=== PATIENT | female | born 1970 | race Hispanic/Latino ===

== ENCOUNTER 2016-08-31 13:57 | Emergency (ER) | payer OTHER ==
[~2016-08-31] VITALS: Ht 157.5 cm; Wt 70.3 kg
[~2016-08-31 13:57] MED LIST: AMOXICILLIN500 M3 PO; AUGMENTIN 875-1 EACH PO; AUGMENTIN 875875 MG PO; BACTRIM 400-801 EACH PO; BENADRYL 50 MG50 MG PO; CIPRO 500MG TA500 MG PO; CLINDAMYCIN HC150 M1 PO; DEXTROAMP-AMPHE30 MG PO; FLEXERIL10 MG PO; GABAPENTIN300 M2; HYDROCORTI2.5 %/30 G TOP; HYDROXYZINE PAM50 M1 PO; KLONOPIN2 MG PO; MEDROL4 MG PO; MOTRIN 600 MG600 MG PO; PERCOCET 325 MG1 TA2 PO; PYRIDIUM100 MG PO; SKELAXIN800 MG PO; TORADOL10 MG PO; TRAMADOL HCL50 M1 PO; TRIAMCINOL0.1 %/453 TOP; VICODIN5-300 PO
[2016-08-31] MEDS ORDERED: TRIAMCINOLONE A15 G2 TOP (15:35)
--- NOTE | 2016-08-31 15:35 | ED SKIN/ALLERGY COMPLAINT ---
History of Present Illness General Chief Complaint: Skin Rash/ Abcess Stated Complaint: ITCHY HANDS, TICK BITE TO LT ARM Source: patient Exam Limitations: no limitations Vital Signs & Intake/Output Vital Signs & Intake/Output Vital Signs Date Time Temp Pulse Resp B/P B/P Pulse O2 O2 Flow FiO2 Mean Ox Delivery Rate 08/31 1558 97.5 78 18 115/70 98 Room Air Room Air 08/31 1405 97.5 77 18 114/72 99 Room Air Allergies Coded Allergies: NO KNOWN ALLERGIES (09/24/14) Reconcile Medications Amoxicillin 500 MG TABLET 1 TAB PO TID dental pain Dextroamphetamine/Amphetamine (Dextroamp-Amphetamin 30 MG Tab) 30 MG TABLET 1 TAB PO 4 TIMES/DAY ADD (Reported) Gabapentin (Unknown Strength) CAPSULE (Unknown Dose) UNKNOWN (Reported) Hydroxyzine Pamoate 50 MG CAPSULE 2 CAP PO QPM SLEEP (Reported) Tramadol HCl 50 MG TABLET 1-2 TAB PO Q6P PRN pain Triamcinolone Acetonide 0.5 % CREAM..G. 1 ARIAN TOP BID eczema apply to affected area(s) Triage Note: STATE SHE PULLED A TICK OFF HER LEFT UPPER ARM. DOESNT KNOW WHAT TO DO. ALSO C/O RED, ITCHY HANDS X 1 WEEK. Triage Nurses Notes Reviewed? yes Onset: Abrupt Duration: day(s):, constant, continues in ED Timing: recent history Severity: moderate, severe Location: hands No Modifying Factors: none : No Patient currently breastfeeds: No HPI: 45-year-old female comes into emergency room with rash on her bilateral hands that has been going on for the past week. Itching. Red. Denies any fever chills. Patient reports that she may have pulled a tick off of her in the day. It was crawling around on her arm. She does not think it was on their morning a day or 2. She was not 100% sure that it was a tick but thinks it was. Denies any rash. Small bite to her left upper arm. (LARRY CARTWRIGHT) Past History Travel History Traveled to [place] past 21 day No Medical History Any Pertinent Medical History? 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 No (LARRY CARTWRIGHT) Review of Systems Review of Systems Constitutional: Reports: no symptoms. EENTM: Reports: no symptoms. Respiratory: Reports: no symptoms. Cardiovascular: Reports: no symptoms. GI: Reports: no symptoms. Genitourinary: Reports: no symptoms. Musculoskeletal: Reports: no symptoms. Skin: Reports: see HPI. Neurological/Psychological: Reports: no symptoms. Hematologic/Endocrine: Reports: no symptoms. Immunologic/Allergic: Reports: no symptoms. All Other Systems: Reviewed and Negative (LARRY CARTWRIGHT) Physical Exam Physical Exam General Appearance: well developed/nourished Head: atraumatic Eyes: Bilateral: normal appearance. Ears, Nose, Throat: normal ENT inspection, hearing grossly normal Neck: normal inspection Respiratory: no respiratory distress Cardiovascular: regular rate/rhythm Back: normal inspection Extremities: no edema Neurologic/Psych: awake, alert, oriented x 3, normal mood/affect Skin: intact, rash Skin Problem Location: upper extremities Skin Problem Character: erythematous, lichenification, crusting, located in the folds of skin so fingers, small papules, Lymphatic: no anterior cervical toshia (LARRY CARTWRIGHT) Progress Differential Diagnosis: abscess/cellulitis, allergic reaction, contact dermatitis, lyme disease, meningitis/sepsis, piyriasis rosea, toxic shock syndrome, urticaria, eczema Plan of Care: Current Medications Sig/Ivan Start time Last Medication Dose Stop Time Status Admin Doxycycline Hyclate 200 MG ONCE ONE 08/31 1545 AC (Vibramycin) 08/31 1546 Departure Departure Disposition: HOME OR SELF CARE Condition: Stable Clinical Impression Primary Impression: Eczema Secondary Impressions: Insect bite Referrals: PATIENT HAS NO PRIMARY CARE DR (PCP/Family) Additional Instructions: Use triamcinolone cream as prescribed. Follow-up with your primary care Dr. provided for Lyme titer in 4-6 weeks. Return if any other concerns worsening symptoms. Please go over all results of today's visit with your primary care doctor. Contact your primary care doctor to let them know you were here in the emergency room. There may be nonspecific findings which may not be related to your visit today here in the emergency room but may require further evaluation and chronic monitoring by your primary care doctor. If you had a laceration today the chance of foreign body always remains. You should follow-up with your primary care doctor for recheck in 3-5 days for a wound check. If you had an x-ray done there is a chance that a fracture could have been missed on initial read and you should follow-up with your primary care doctor for repeat x-rays if symptoms persist. If your blood pressure was elevated here in the emergency room please have rechecked by her primary care doctor within the next 48 hours by your primary care doctor. If you were prescribed a narcotic here in the emergency room or any type of controlled substances you're not allowed to drive while taking this medication or operate any type of heavy machinery. Narcotics can make you feel lightheaded dizziness nausea and can cause constipation. You may need to fruit picker machine operator a stool softener. Thank you for choosing [facility] emergency room. Please return to the emergency room immediately if you have any other concerns worsening of symptoms. Departure Forms: Customer Survey General Discharge Information Prescriptions: Current Visit Scripts Triamcinolone Acetonide 1 ARIAN TOP BID #30 GM apply to affected area(s) Comments 08/31/2016 4:14:06 PM Patient clinically looks well. Rashes most consistent with eczema. Low suspicion for Lyme disease prophylactic dose of doxycycline 200 mg. Patient can follow-up with her primary care doctor to be tested for Lyme in 4 weeks. Too early to test. Clinically looks well otherwise. (LARRY CARTWRIGHT) PA/RIG BUILDER Co-Sign Statement Statement: ED Attending supervision documentation- [] I saw and evaluated the patient. I have also reviewed all the pertinent lab results and diagnostic results. I agree with the findings and the plan of care as documented in the PA's/RIG BUILDER's documentation. [X] I have reviewed the ED Record and agree with the PA's/RIG BUILDER's documentation. [] Additions or exceptions (if any) to the PAs/RIG BUILDER's note and plan are summarized below: [] (MAHAMED HIGGINS,OJ)
[2016-08-31 15:58] VITALS: BP 115/70
== END 2016-08-31 16:00 ==
LOC: ERH 13:57
DX: S40.862A Insect bite (nonvenomous) of left upper arm, initial encounter (principal); L30.9 Dermatitis, unspecified; W57.XXXA Bitten or stung by nonvenomous insect and other nonvenomous arthropods, initial encounter; Y92.9 Unspecified place or not applicable; Y93.9 Activity, unspecified

== ENCOUNTER 2016-09-03 10:42 | Emergency (ER) | payer OTHER ==
[~2016-09-03] VITALS: Ht 157.5 cm; Wt 83.9 kg
[~2016-09-03 10:42] MED LIST changes: +TRIAMCINOLONE A15 G2 TOP
--- NOTE | 2016-09-03 11:17 | ED CARDIAC/CP/PALPITATIONS ---
History of Present Illness General Chief Complaint: Chest Pain Stated Complaint: CHEST PAIN, LEFT ARM PAIN Source: patient, old records Exam Limitations: no limitations Vital Signs & Intake/Output Vital Signs & Intake/Output Vital Signs Date Time Temp Pulse Resp B/P B/P Pulse O2 O2 Flow FiO2 Mean Ox Delivery Rate 09/03 1338 97.5 103 16 143/79 99 Room Air 09/03 1155 96 Room Air 09/03 1110 98.6 97 15 112/82 100 Room Air Allergies Coded Allergies: NO KNOWN ALLERGIES (09/24/14) Reconcile Medications Clonazepam 1 MG TABLET 1 TAB PO TIDPRN ANXIETY (Reported) Dextroamphetamine/Amphetamine (Dextroamp-Amphetamin 30 MG Tab) 30 MG TABLET 1 TAB PO 4 TIMES/DAY ADD (Reported) Triage Note: PT TO ED FOR INTERMITTENT CP X 2 DAYS, UNABLE TO IDENTIFY IF ANYTHING MAKES CHEST PAIN BETTER. PT USING CELL PHONE THROUGHOUT EKG AND EATING GOLDFISH. Triage Nurses Notes Reviewed? yes Onset: Abrupt Duration: day(s): (3), intermittent, waxing and waning Timing: recent history Quality/Severity: mild, moderate, aching Location: central Radiation: no radiation Activities at Onset: none Nitro Today/Relief: no nitro taken today Aspirin Today: no aspirin today Associated Symptoms: DENIES HPI: 45-year-old female with history of asthma, ADD, anxiety presents to ER complaining of intermittent left-sided chest pain has been present for the past 3 days associated with left hip pain. She denies any shortness of breath the pain is reproducible in both regions with palpation. She denies cough hemoptysis recent immobility no pain with inspiration. Patient states that her leg gave out yesterday while walking her dog which causes the pain to her leg and left hip. She denies any knee foot or ankle pain numbness or tingling no arm or jaw or back pain. No history of similar symptoms in the past she is not taken anything for her symptoms and they resolved PRIOR TO ARRIVAL Past History Travel History Traveled to [place] past 21 day No Medical History Any Pertinent Medical History? 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 No Review of Systems Review of Systems Constitutional: Reports: see HPI. All Other Systems: Reviewed and Negative Comments Review of systems: See HPI, All other systems negative. Constitutional, no chills no fever, no malaise HEENT: no sore throat no congestion, no ear pain Cardiovascular: No chest pain , no palpitation , no orthopnea Skin: no rashes, no change in skin Respiratory: No dyspnea no cough no sputum GI: No nausea no vomiting, no diarrhea, : No dysuria No hematuria, no frequency, no discharge Muscle skeletal: No joint pain, no joint swelling, no back pain, no neck pain, Neurologic: no headache Psych: stress,. Heme/endocrine: No bruising no bleeding Immunology: No lymphadenopathy Physical Exam Physical Exam General Appearance: well developed/nourished, alert, awake Cardiovascular: regular rate/rhythm Comments: Well-developed well-nourished person in no acute distress HEENT: Normal EENT exam; PERRL, EOMI, HEAD is atraumatic. moist mucous membranes. Neck: Supple, normal range of motion Back: Nontender, no CVA tenderness. Full range of motion Cardiovascular: Regular rate and rhythms no murmurs rubs Respiratory: Chest nontender.There were no bony deformities, no asymmetry. No respiratory distress. Patient speaking in full complete sentences. Breath sounds clear to auscultation bilaterally: NO W/R/R Abdomen: Soft, nontender nondistended, no appreciable organomegaly. Normal bowel sounds. No rebound/guarding Extremity: No edema, full range of motion of extremities Neuro: Alert oriented x3, motor sensory normal, nofocal neurologic abnormalities. Skin: No appreciable rash on exposed skin, skin is warm and dry. Psych: Mood and affect is normal, memory and judgment is normal. Core Measures ACS in differential dx? Yes Severe Sepsis Present: No Septic Shock Present: No Progress Differential Diagnosis: AMI, musculoskeletal pain, myocarditis, pericarditis, pneumonia, pneumothorax, pulmonary embolism, unstable angina, ELECTROLYTEABNROMALITY Plan of Care: Orders Procedure Date/time Status TROPONIN LEVEL 09/03 1117 Complete COMPREHENSIVE METABOLIC PANEL 09/03 1117 Complete CBC WITHOUT DIFFERENTIAL 09/03 1117 Complete EKG 09/03 1044 Active Laboratory Tests 09/03/16 1150: Anion Gap 11, Estimated GFR > 60, BUN/Creatinine Ratio 20.0, Glucose 90, Calcium 9.1, Total Bilirubin 0.4, AST 28, ALT 31, Alkaline Phosphatase 48, Troponin I < 0.01, Total Protein 7.2, Albumin 4.3, Globulin 2.9, Albumin/Globulin Ratio 1.5, CBC w Diff NO MAN DIFF REQ, RBC 4.62, MCV 79.1 L, MCH 25.6 L, RDW 15.5 H, MPV 10.7 H, Gran % 59.4, Lymphocytes % 32.5, Monocytes % 6.1, Eosinophils % 1.5, Basophils % 0.5, Absolute Granulocytes 5.6, Absolute Lymphocytes 3.0, Absolute Monocytes 0.6, Absolute Eosinophils 0.1, Absolute Basophils 0, PUBS MCHC 32.3 L Labs ordered patient denies any symptoms at this time case discussed with Dr. Stahl On repeat evaluation patient remains pain-free ambulatory around the emergency room with steady gait. Pain is reproducible with palpation I discussed with the patient at length all of their results. I had an extensive conversation regarding need for close follow up with their primary care physician this week as well as return precautions. I answered all of their questions, they feel comfortable with the plan and follow-up care. (EARL LOPEZ,SUMMER) Diagnostic Imaging: Viewed by Me: Radiology Read. Discussed w/RAD: Radiology Read. Radiology Impression: PATIENT: LUCIANO VERDE PRESENT AGE : 45 PATIENT ACCOUNT NO: [id number] : 70 LOCATION: [facility] ORDERING PHYSICIAN: SUMMER LOPEZ SERVICE DATE: 09/03/16 EXAM TYPE: RAD - XRY- AP PELVIS; XRY-CHEST XRAY, PA AND LATERAL EXAMINATION: XR PELVIS CLINICAL INFORMATION: Chest pain. COMPARISON: None TECHNIQUE: AP view of the pelvis. FINDINGS: Both lungs are well-expanded and clear of acute process. There is mild dextroscoliosis of dorsal spine. No lytic or sclerotic process seen. IMPRESSION: Mild dextroscoliosis. Otherwise no acute cardiopulmonary process seen. DICTATED BY: JACOB HIGGINS,ERIK DATE/TIME DICTATED:09/03/161233 CHIEF WHARFINGER:SOHEILA DATE/TIME TRANSCRIBED:09/03/161233 CONFIDENTIAL, DO NOT COPY WITHOUT APPROPRIATE AUTHORIZATION. <Electronically signed in Other Vendor System> SIGNED BY: JACOB HIGGINS,ERIK 09/03/16 1405 Initial ED EKG: normal intervals, normal p-waves, normal QRS complex, normal sinus rhythm (80) Departure Departure Time of Disposition: 1333 Disposition: HOME OR SELF CARE Condition: Stable Clinical Impression Primary Impression: Atypical chest pain Referrals: OSMAN MANCUSO DO PATIENT HAS NO PRIMARY CARE DR (PCP/Family) Additional Instructions: Follow-up with primary care physician Dr. MANCUSO on Tuesday rest Tylenol Motrin as needed for pain return with any concerns Departure Forms: Customer Survey General Discharge Information Critical Care Note Critical Care Note Critical Care Time: non-applicable
[2016-09-03 12:04] LABS: ABSOLUTE BASOPHIL COUNT 0 /CUMM (0.0-0.2); ABSOLUTE EOSINOPHIL COUNT 0.1 /CUMM (0.0-0.7); ABSOLUTE GRANULOCYTE CT 5.6 /CUMM (1.4-6.5); ABSOLUTE MONOCYTE COUNT 0.6 /CUMM (0.10-0.60); BASOPHIL % 0.5 % (0.0-2.0); EOSINOPHIL % 1.5 % (0-5); GRANULOCYTE % 59.4 % (42.2-75.2); HEMATOCRIT 36.6 % (37-47); MEAN CORPUSCULAR HGB 25.6 PG (27.0-31.0); MEAN CORPUSCULAR HGB CONC 32.3 G/DL (33.0-37.0); MEAN CORPUSCULAR VOLUME 79.1 FL (81.0-99.0); MEAN PLATELET VOLUME 10.7 FL (7.4-10.4); PLATELET COUNT 252 /CUMM (130-400); RBC DISTRIBUTION WIDTH 15.5 % (11.5-14.5); RED BLOOD CELL CT 4.62 /CUMM (4.20-5.40); WHITE BLOOD CELL COUNT 9.4 /CUMM (4.8-10.8)
[2016-09-03 13:38] VITALS: BP 143/79
[2016-09-03] MEDS ORDERED: IBUPROFEN600 M1 PO (13:44)
[2016-09-03] MEDS ORDERED: CLONAZEPAM1 M2 PO (13:48)
--- NOTE | 2016-09-03 14:05 | RADIOLOGY REPORT ---
EXAMINATION: XR PELVIS CLINICAL INFORMATION: Chest pain. COMPARISON: None TECHNIQUE: AP view of the pelvis. FINDINGS: Both lungs are well-expanded and clear of acute process. There is mild dextroscoliosis of dorsal spine. No lytic or sclerotic process seen. IMPRESSION: Mild dextroscoliosis. Otherwise no acute cardiopulmonary process seen.
== END 2016-09-03 13:49 ==
LOC: ERH 10:42
PROVIDERS: Physician Assistant Medical
DX: R07.89 Other chest pain (principal); M25.552 Pain in left hip
CPT/HCPCS: 72170; 93005; 93010

== ENCOUNTER 2016-10-20 01:21 | Emergency (ER) | payer OTHER ==
[~2016-10-20 01:21] MED LIST changes: +CLONAZEPAM1 M2 PO; +IBUPROFEN600 M1 PO
== END 2016-10-20 04:00 | disposition admitted as inpatient to this hospital (09) ==
LOC: ERH 01:21
DX: H57.10 Ocular pain, unspecified eye (principal)

== ENCOUNTER 2017-08-03 21:22 | Emergency (ER) | payer OTHER ==
[~2017-08-03] VITALS: Ht 157.5 cm; Wt 68.0 kg
[2017-08-03 21:28] VITALS: BP 145/95
[2017-08-03] MEDS ORDERED: PREDNISONE50 M1 PO (22:27)
[2017-08-03] MEDS ORDERED: TRIAMCINOLONE A15 G1 TOP (22:27)
[2017-08-03] MEDS ORDERED: KEFLEX500 M1 PO (22:27)
--- NOTE | 2017-08-03 22:28 | ED GENERAL ADULT ---
History of Present Illness General Chief Complaint: Animal/Insect Bite Stated Complaint: INSECT BITE,?SPIDER BITE Source: patient Exam Limitations: no limitations Vital Signs & Intake/Output Vital Signs & Intake/Output Vital Signs Date Time Temp Pulse Resp B/P B/P Pulse O2 O2 Flow FiO2 Mean Ox Delivery Rate 08/04 2127 97.7 89 20 145/95 97 Room Air ED Intake and Output 08/04 0000 08/03 1200 Intake Total 0 Output Total Balance 0 Intake, Oral 0 Patient 150 lb Weight Allergies Coded Allergies: tramadol (Severe, SHAKES 08/03/17) Reconcile Medications Cephalexin (Keflex) 500 MG CAPSULE 1 CAP PO TID CELLULITIS Clonazepam 1 MG TABLET 1 TAB PO TIDPRN ANXIETY (Reported) Dextroamphetamine/Amphetamine (Dextroamp-Amphetamin 30 MG Tab) 30 MG TABLET 1 TAB PO 4 TIMES/DAY ADD (Reported) Metoclopramide HCl (Reglan) 10 MG TABLET 1 TAB PO 4 TIMES/DAY PRN NAUSEA/ HEADACHE 30 minutes before meals and bedtime Prednisone 50 MG TABLET 1 TAB PO DAILY ALLERGIC REACTION Triamcinolone Acetonide 0.1 % CREAM..G. 1 ARIAN TOP BID PRN RASH Triage Note: PT TO TRIAGE S/P ?SPIDER BITE LAST NIGHT ON L UPPER ARM. REDNESS NOTED ON ARM FROM MID UPPER ARM TO L ELBOW. PT AFEBRILE. PT UNABLE TO FOCUS ON ONE TOPIC IN TRIAGE. Triage Nurses Notes Reviewed? yes Onset: Abrupt Duration: day(s): (3), constant, continues in ED, getting worse Timing: single episode today Injury Environment: home Severity: mild, moderate Severity Numbers: 9 No Modifying Factors: none LMP (ages 10-50): unknown : No Patient currently breastfeeds: No HPI: 46 red female past medical history of anxiety, asthma, MIGRANES,Iosteoarthritis presents for evaluation of a rash. Patient states she first noticed an area of redness on her left upper arm a few days ago and has been getting worse. States that the redness is spreading up and down her arm. The area is painful and slightly swollen. It is also itchy. She denies any new exposures. No focal fluctuant areas or discharge no fever. She also reports that she has had worsening of her eczema. She states that she has thickened and erythematous very itchy skin on her bilateral anterior wrists. No discharge. No swelling of her lips on her throat no chest pain shortness of breath or fever. She is not a diabetic.she does report some associated nausea (Mitchell Jovel) Past History Travel History Traveled to [place] past 21 day No Medical History Any Pertinent Medical History? 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 No (Mitchell Jovel) Review of Systems Review of Systems Constitutional: Reports: no symptoms. EENTM: Reports: no symptoms. Respiratory: Reports: no symptoms. Cardiovascular: Reports: no symptoms. GI: Reports: no symptoms. Genitourinary: Reports: no symptoms. Musculoskeletal: Reports: no symptoms. Skin: Reports: see HPI, erythema, rash. Neurological/Psychological: Reports: no symptoms. Hematologic/Endocrine: Reports: no symptoms. Immunologic/Allergic: Reports: no symptoms. All Other Systems: Reviewed and Negative (Mitchell Jovel) Physical Exam Physical Exam General Appearance: well developed/nourished, no apparent distress, alert, awake Head: atraumatic, normal appearance Eyes: Bilateral: normal appearance, PERRL, EOMI. Ears, Nose, Throat: hearing grossly normal Neck: normal inspection, supple, full range of motion Respiratory: normal breath sounds, chest non-tender, no respiratory distress, lungs clear Cardiovascular: regular rate/rhythm, normal peripheral pulses Peripheral Pulses: 2+ radial (R), 2+ radial (L) Gastrointestinal: soft, non-tender Back: normal inspection, normal range of motion, no vertebral tenderness Extremities: normal range of motion, THERE IS ERYTHEMATOUS LICHENIFIED SCALING RAISED LESIONS ON THE BILATERAL ANTERIOR WRISTS. nO BURROWS NO DISCHARGE NO PAIN TO PALPATION. fULL RANGE OF MOTION OF BILATERAL WRISTS INTACT. tHERE IS ALSO AN AREA OF ERYTHEMA THAT EXTENDS FROM THE LEFT UPPER ARM INTO THE LEFT SHOULDER. tHIS AREA IS TENDER TO PALPATION. nO FOCAL FLUCTUANT AREAS OR DISCHARGE NO INDURATION NO LYMPHATIC STREAKING. tHE AREA IS WARM TO TOUCH. fULL RANGE OF MOTION OF THE BILATERAL UPPER EXTREMITIES IS INTACT. nEUROVASCULAR SUPPLY ATTACK NO LYMPHADENOPATHY IN THE LEFT AXILLA Neurologic/Psych: no motor/sensory deficits, awake, alert, oriented x 3, normal gait, normal mood/affect Skin: intact, normal color, warm/dry Lymphatic: no anterior cervical toshia Core Measures ACS in differential dx? No CVA/TIA Diagnosis: No Sepsis Present: No Sepsis Focused Exam Completed? No (Mitchell Jovel) Progress Differential Diagnoses I considered the following diagnoses in my evaluation of the patient: [ Cellulitis, contact dermatitis, abscess, scabies, eczema, shingles] Plan of Care: Current Medications Sig/Ivan Start time Last Medication Dose Stop Time Status Admin Metoclopramide HCl 10 MG ONCE ONE 08/03 2229 UNVr (Reglan) 08/03 2230 Morphine Sulfate 4 MG ONCE ONE 08/03 2229 UNVr (Morphine) 08/03 2230 Patient seen and evaluated. She is a itchy painful rash on her left upper extremity. She also has evidence of eczema on her bilateral wrists. States that the rash on the wrist has been present for many weeks while the rash in the left upper extremity is new. Patient is medicated with IM morphine. On reevaluation reports improved pain. Suspect cellulitis versus allergic etiology. There are no vesicles or burrows. Patient be treated with cephalexin and prednisone. Topical Kenalog for eczema. Advised her to keep her skin clean dry. Follow-up with a primary care doctor. Discussed return precautions in detail she should have a wound check in a few days. Patient agrees the plan Initial ED EKG: none (Mitchell Jovel) Departure Departure Disposition: HOME OR SELF CARE Condition: Stable Clinical Impression Primary Impression: Rash Referrals: Rachelle HIGGINS,Javier Mejía MD,Wil Almanza MD,Obinna Casillas Patient Has No Primary Care Dr (PCP/Family) Additional Instructions: Take antibiotics and steroids as directed for the full course. Reglan for nausea/headache. Tylenol or ibuprofen for pain. Apply KENALOG cream twice daily as directed over rash. Keep skin clean and dry. Use a anti-dANDRUFF. You need to follow-up with a primary care doctor see attached list. Departure Forms: Customer Survey General Discharge Information Prescriptions: Current Visit Scripts Triamcinolone Acetonide 1 ARIAN TOP BID PRN RASH #1 TUBE Prednisone 1 TAB PO DAILY #5 TAB Cephalexin (Keflex) 1 CAP PO TID #30 CAP Metoclopramide HCl (Reglan) 1 TAB PO 4 TIMES/DAY PRN NAUSEA/HEADACHE #30 TAB 30 minutes before meals and bedtime (Mitchell Jovel) PA/TRANSACTIONAL ATTORNEY Co-Sign Statement Statement: ED Attending supervision documentation- I saw and evaluated the patient. I have also reviewed all the pertinent lab results and diagnostic results. I agree with the findings and the plan of care as documented in the PA's/TRANSACTIONAL ATTORNEY's documentation. x I have reviewed the ED Record and agree with the PA's/TRANSACTIONAL ATTORNEY's documentation. [] Additions or exceptions (if any) to the PAs/TRANSACTIONAL ATTORNEY's note and plan are summarized below: [] (Kvng HIGGINS,Hari) Critical Care Note Critical Care Note Critical Care Time: non-applicable (Mitchell Jovel)
[2017-08-03] MEDS ORDERED: REGLAN10 M1 PO (22:57)
== END 2017-08-03 23:12 ==
LOC: ERH 21:22
DX: R21 Rash and other nonspecific skin eruption (principal)

== ENCOUNTER 2017-08-10 12:50 | Emergency (ER) | payer OTHER ==
[~2017-08-10] VITALS: Ht 157.5 cm; Wt 65.8 kg
[~2017-08-10 12:50] MED LIST changes: +KEFLEX500 M1 PO; +PREDNISONE50 M1 PO; +REGLAN10 M1 PO; +TRIAMCINOLONE A15 G1 TOP
[2017-08-10 13:04] VITALS: BP 133/87
[2017-08-10] MEDS ORDERED: METHADONE10 MG/1 M2 PO (13:10)
--- NOTE | 2017-08-10 13:12 | ED SKIN/ALLERGY COMPLAINT ---
See Addendum History of Present Illness General Chief Complaint: Skin Rash/ Abcess Stated Complaint: ?ALLERGIC REACTION/SKIN RASH Source: patient Exam Limitations: no limitations Vital Signs & Intake/Output Vital Signs & Intake/Output Vital Signs Date Time Temp Pulse Resp B/P B/P Pulse O2 O2 Flow FiO2 Mean Ox Delivery Rate 08/10 1304 98.2 105 18 133/87 100 Room Air Allergies Coded Allergies: tramadol (Severe, SHAKES 08/03/17) Reconcile Medications Famotidine (Pepcid) 20 MG TABLET 1 TAB PO DAILY PRN ALLERGIC REACTION Hydrocortisone 2.5 % CREAM..G. 1 ARIAN TOP TID PRN ALLERGIC REACTION Methadone HCl 10 MG/ML ORAL.CONC 73 MG PO Q48 MAINTENCE (Reported) Triage Note: 46 Y/O FEMALE C/O SCALY RED RASH TO ALL BODY (ARMS, LEGS, TORSO) X 2 DAYS. PT STATES SOME AREAS ARE DRAINING. +ITCHING. DENIES KNOWN ALLERGIES OR SOURCES. Triage Nurses Notes Reviewed? yes Onset: Gradual Duration: constant Timing: recent history Severity: severe Severity Numbers: 7 HPI: Patient is a 46-year-old female who presents emergency room stating that 2 days ago patient changed her soap where she developed a gradual onset of bilateral hand and wrist in which she is complaining of red irritating scaling rash is significantly causing her to itch her hands and wrists. Patient denies any fever chills tongue swelling lip swelling difficulty breathing difficulty swallowing Patient has been taking Benadryl with moderate relief of symptoms. Denies any new medications (Jeanmarie Gorman) Past History Travel History Traveled to [place] past 21 day No Medical History Any Pertinent Medical History? 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 No (Jeanmarie Gorman) Review of Systems Review of Systems Constitutional: Reports: no symptoms. EENTM: Reports: no symptoms. Respiratory: Reports: no symptoms. Cardiovascular: Reports: no symptoms. GI: Reports: no symptoms. Genitourinary: Reports: no symptoms. Musculoskeletal: Reports: no symptoms. Skin: Reports: see HPI, rash. Neurological/Psychological: Reports: no symptoms. Hematologic/Endocrine: Reports: no symptoms. Immunologic/Allergic: Reports: no symptoms. All Other Systems: Reviewed and Negative (Jeanmarie Gorman) Physical Exam Physical Exam General Appearance: no apparent distress, alert, comfortable Head: atraumatic Eyes: Bilateral: normal appearance, PERRL. Ears, Nose, Throat: normal pharynx, normal ENT inspection Neck: normal inspection Respiratory: normal breath sounds, chest non-tender, no respiratory distress Extremities: normal capillary refill, normal range of motion, no edema Neurologic/Psych: no motor/sensory deficits, awake, alert Diagram Chest, Abdomen, Back: 1) Noted dried erythematous scaling rash ventral and posterior full active range of motion with wrist flexion extension 2) Noted dried erythematous scaling rash ventral and posterior full active range of motion with wrist flexion extension (Jeanmarie Gorman) Progress Differential Diagnosis: abscess/cellulitis, allergic reaction, anaphylaxis, angioedema, contact dermatitis, drug reaction, urticaria Plan of Care: Current Medications Sig/Ivan Start time Last Medication Dose Stop Time Status Admin Famotidine 20 MG ONCE ONE 08/10 1330 AC (Pepcid) 08/10 1331 No concerns of anaphylaxis or angioedema no stridor on exam clear lungs auscultation Due to history of present illness and exam findings are's concerns of contact dermatitis due to patient's news soap exposure (Jeanmarie Gorman) Departure Departure Disposition: HOME OR SELF CARE Condition: Stable Clinical Impression Primary Impression: Allergic reaction Secondary Impressions: Rash Referrals: Patient Has No Primary Care Dr (PCP/Family) Additional Instructions: As discussed please begin your previously used Dove soap and discontinue the [employer] brand soap as this may be due to causes her symptoms. Begin the prescription of hydrocortisone and apply as directed creamed and begin the prescription of Pepcid tomorrow as you have received this medication the emergency room today. If symptoms worsen return to emergency room. Continue uqoe-orm-ajyrmcy Benadryl. Follow-up with YOUR doctor on Tuesday if no better Departure Forms: Customer Survey General Discharge Information Prescriptions: Current Visit Scripts Hydrocortisone 1 ARIAN TOP TID PRN ALLERGIC REACTION #1 TUBE Famotidine (Pepcid) 1 TAB PO DAILY PRN ALLERGIC REACTION #7 TAB (Jeanmarie Gorman) PA/BDC MANAGER Co-Sign Statement Statement: ED Attending supervision documentation- [] I saw and evaluated the patient. I have also reviewed all the pertinent lab results and diagnostic results. I agree with the findings and the plan of care as documented in the PA's/BDC MANAGER's documentation. [X] I have reviewed the ED Record and agree with the PA's/BDC MANAGER's documentation. [] Additions or exceptions (if any) to the PAs/BDC MANAGER's note and plan are summarized below: [] (Deshaun Baker DO
[2017-08-10] MEDS ORDERED: HYDROCORTISONE30 GM TOP (13:29)
[2017-08-10] MEDS ORDERED: PEPCID20 M1 PO (13:29)
== END 2017-08-10 13:54 ==
LOC: ERH 12:50
DX: L23.89 Allergic contact dermatitis due to other agents (principal)

== ENCOUNTER 2017-10-08 16:43 | Inpatient (IN) | payer OTHER ==
[~2017-10-08] VITALS: Ht 160 cm; Wt 65.8 kg
[~2017-10-08 16:43] MED LIST changes: +HYDROCORTISONE30 GM TOP; +HYDROXYZINE HCL50 M1 PO; +METHADONE10 MG/1 M2 PO; +PEPCID20 M1 PO
[2017-10-08] MEDS ORDERED: ALPRAZOLAM2 M2 PO (17:18)
[2017-10-08] MEDS ORDERED: DEXTROAMP-AMPHE20 MG PO (17:20)
[2017-10-08] MEDS ORDERED: PROAIR HFA8.5 GM INH (17:20)
[2017-10-08] MEDS ORDERED: HYDROXYZINE HCL50 M2 (17:21)
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
[2017-10-08 17:41] LABS: ABSOLUTE BASOPHIL COUNT 0.1 /CUMM (0.0-0.2); ABSOLUTE EOSINOPHIL COUNT 0.2 /CUMM (0.0-0.7); ABSOLUTE GRANULOCYTE CT 5.1 /CUMM (1.4-6.5); ABSOLUTE LYMPH COUNT 3.5 /CUMM (1.2-3.4); ABSOLUTE MONOCYTE COUNT 0.5 /CUMM (0.10-0.60); BASOPHIL % 0.8 % (0.0-2.0); EOSINOPHIL % 1.9 % (0-5); GRANULOCYTE % 54.9 % (42.2-75.2); HEMATOCRIT 37.9 % (37-47); MEAN CORPUSCULAR HGB 25.5 PG (27.0-31.0); MEAN CORPUSCULAR HGB CONC 32.2 G/DL (33.0-37.0); MEAN CORPUSCULAR VOLUME 79.1 FL (81.0-99.0); MEAN PLATELET VOLUME 11.8 FL (7.4-10.4); RBC DISTRIBUTION WIDTH 15.4 % (11.5-14.5); RED BLOOD CELL CT 4.79 /CUMM (4.20-5.40); WHITE BLOOD CELL COUNT 9.4 /CUMM (4.8-10.8)
[2017-10-08 17:53] LABS: PLATELET COUNT 237 /CUMM (130-400)
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
--- NOTE | 2017-10-10 17:11 | ED PSYCHIATRIST/APRN CONSULT ---
Psychiatrist/PATROL OFFICER ED Consult Assessment and Plan: PROGRESS NOTE: SUBJECTIVE: Patient reports her life is "a mess." Patient knows that her brother is concerned about her because she is "not doing well." Patient says she needs to sleep with the lights on because she is worried about intruders. Patient states she "needs my Xanax so that I don't worry and I need my Adderall also but I stay motivated." Patient feels that methadone is currently wearing off but no overt signs of withdrawal at this point. Patient states she is also beginning to feel Xanax were off and states that she wants to sleep but is afraid that she is going to wake up anxious and needs her Xanax before she can go to sleep. Patient denies SI/HI/AVH/SIB however reported SI 2 days ago and that "nothing has changed." Patient reports poor sleep, anhedonia however likes going to movies. Patient reports poor energy, concentration, low appetite with weight loss. Patient reports nightmares, flashbacks of past trauma, intrusive thoughts, but denies reexperiencing or dissociation. Patient denies Ssx cisco or psychosis, however reports a "special connection with her dog Blue, we can like in each other's eyes and know exactly what the other one is thinking." Pt dneied TP/TI/IOR. Patient states that she is "not doing well" at home and has had her water disconnected, is about to have her electricity disconnected and only is able to pay her rent with SSDI. Patient states she does not have enough food and is unable to care for her dogs but is afraid to be put to sleep. Patient endorses very poor memory and has been writing extensive lists while in Crisis bed, "so that I don't forget anything." Patient is in agreement with inpatient admission for maintenance of safety, psychiatric stabilization and medication adjustments. Psychoeducation regarding Adderall and Xanax provided. OBJECTIVE: Patient interviewed with nephrology social worker video editing intern present. Patient has been isolative in room, currently eating lunch, nodding. Patient has been requesting Xanax and Adderall. Patient appears sedated on interview. Current Medications Sig/Ivan Start time Last Medication Dose Route Stop Time Status Admin Haloperidol 5 MG Q6-PRN PRN 10/09 1200 UNVr PO Hydrocortisone 1 ARIAN BID 10/08 1745 AC 10/10 EXT 0844 Lorazepam 0 .STK-MED ONE 10/11 815 DC PO Lorazepam 2 MG QPM 10/09 2099 UNVr 10/09 PO 2017 Lorazepam 0 .STK-MED ONE 10/09 2012 DC PO Lorazepam 1 MG QAM 10/09 899 UNVr 10/10 PO 0844 Methadone HCl 60 MG DAILY 10/10 899 UNVr 10/10 PO 0844 Methadone HCl 0 .STK-MED ONE 10/11 815 DC PO Nicotine 0 .STK-MED ONE 10/11 815 DC TOP Nicotine 14 MG DAILY 10/08 1830 UNVr 10/10 TOP 0844 Laboratory Tests 10/08/17 1823: Urine Opiates Screen < 100, Methadone Screen > 735 H, Barbiturate Screen < 60, Ur Phencyclidine Scrn < 6.00, Amphetamines Screen > 1450 H, U Benzodiazepines Scrn > 800 H, Urine Cocaine Screen < 50, Urine Cannabis Screen < 5.00 10/08/17 1731: Anion Gap 13, Estimated GFR > 60, BUN/Creatinine Ratio 20.0, Glucose 115 H, Calcium 9.4, Magnesium 2.0, Total Bilirubin 0.2, AST 21, ALT 24, Alkaline Phosphatase 56, Total Protein 7.1, Albumin 4.1, Globulin 3.0, Albumin/Globulin Ratio 1.4, CBC w Diff NO MAN DIFF REQ, RBC 4.79, MCV 79.1 L, MCH 25.5 L, MCHC 32.2 L, RDW 15.4 H, MPV 11.8 H, Gran % 54.9, Lymphocytes % 37.2, Monocytes % 5.2, Eosinophils % 1.9, Basophils % 0.8, Absolute Granulocytes 5.1, Absolute Lymphocytes 3.5 H, Absolute Monocytes 0.5, Absolute Eosinophils 0.2, Absolute Basophils 0.1, Serum Alcohol < 10.0 Vital Signs Date Time Temp Pulse Resp B/P B/P Pulse O2 O2 Flow FiO2 Mean Ox Delivery Rate 10/10 1648 98.2 90 18 147/87 100 Room Air 10/10 1434 97.6 97 18 132/90 97 Room Air 10/10 1116 97.6 91 18 146/84 99 Room Air 10/10 0849 98.2 93 18 136/85 99 Room Air 10/10 0626 98.6 88 18 129/69 95 Room Air 10/09 2213 98.1 78 18 131/86 99 Room Air 10/09 1743 97.9 90 17 151/92 99 Room Air MSE: GENERAL: Oriented to self and place, minimal eye contact, nodding, disheveled, no acute distress. SPEECH: Soft and low, garbled at times, needed to repeat MOTOR: Mild tremor, no asterixis or other abnormal movements MOOD: "Not good" AFFECT: Low, sedated, mood congruent, constricted range, non-labile, poorly related THOUGHT PROCESS: Circumstantial, drifting off THOUGHT CONTENT: No SI/HI/AVH/SIB, but reports she might feel SI again if she returned home, no apparent grandiosity, delusions, obsessions, ruminations, but with mild paranoia COGNITION: Clearly impaired attention, memory or concentration JUDGMENT: Poor INSIGHT: Poor ASSESSMENT: 47-year-old with opiate use disorder on methadone maintenance therapy, anxiety, depression, likely sedative use disorder (Xanax) and stimulant use disorder (Adderall), presenting with brother after SI statements and poor ADLs at home decompensating over the last several months unable to maintain utilities or care of her animals. Strong family history of schizophrenia. Patient with moderate TBI with memory loss and impulsivity, complicated by misuse and withdrawal of both stimumants and sedatives. At this time, pt is at risk of harm to self d/t grave disability and is in agreement with inpatient admission for psychiatric stabilization, maintenance of safety, medication management and aftercare planning. PLAN: -Bed search , place on PEC , maintain safety, q15m in checks -continue meds at this time, monitor for withdrawal -Consider switching from Xanax to longer acting Klonopin -NRT as needed -Regular diet -collateral
--- NOTE | 2017-10-11 10:52 | ED PSYCHIATRIST/APRN CONSULT ---
Psychiatrist/NEUROLOGY SPECIALIST ED Consult Assessment and Plan: PROGRESS NOTE SUBJECTIVE: Patient eating lunch, reports adequate appetite. Patient appears less sedated than yesterday. Patient had methadone this morning. Patient reports that her sleep was fair. Patient currently denies SI/HI/AVH/SIB but still feels extremely "worried." Patient quite ruminative about Adderall and Xanax, feeling she needs both in order to function. Patient counseled to speak with inpatient doctor tomorrow about medication plan, patient in agreement. Denies current withdrawal. Patient denies pain or other physical complaints. Patient is concerned about her Nghia and Ani bracelets at her home and is very concerned that her landlord may steal her belongings, patient has asked her brother to watch over her apartment. OBJECTIVE: Per staff, pt slept overnight, occasionally asking for her medications. No overt withdrawal or any other acute events. Pt remained in behavioral control, adherent with staff instructions and medications. VSS. Patient has very mild hand tremor, no other abnormal movements. Current Medications Sig/Ivan Start time Last Medication Dose Route Stop Time Status Admin Haloperidol 5 MG Q6-PRN PRN 10/09 1200 UNVr PO Hydrocortisone 1 ARIAN BID 10/08 1745 AC 10/11 EXT 0826 Ibuprofen 0 .STK-MED ONE 10/10 2357 DC PO Ibuprofen 600 MG 4 TIMES/DAY PRN 10/10 2345 UNVr 10/10 PO 2359 Lorazepam 0 .STK-MED ONE 10/12 0718 DC PO Lorazepam 0 .STK-MED ONE 10/10 2320 DC PO Lorazepam 2 MG QPM 10/09 2100 UNVr 10/10 PO 2332 Lorazepam 1 MG QAM 10/09 09 UNVr 10/11 PO 0826 Methadone HCl 0 .STK-MED ONE 10/11 0818 DC PO Methadone HCl 60 MG DAILY 10/10 899 UNVr 10/11 PO 0826 Nicotine 0 .STK-MED ONE 10/11 0819 DC TOP Nicotine 14 MG DAILY 10/08 1830 UNVr 10/11 TOP 0826 Vital Signs Date Time Temp Pulse Resp B/P B/P Pulse O2 O2 Flow FiO2 Mean Ox Delivery Rate 10/11 821 97.9 83 18 127/80 98 Room Air 10/11 0656 98.1 74 18 130/83 99 Room Air 10/10 2330 97.8 92 18 138/82 99 Room Air 10/10 1648 98.2 90 18 147/87 100 Room Air 10/10 1434 97.6 97 18 132/90 97 Room Air 10/10 1116 97.6 91 18 146/84 99 Room Air MSE: GENERAL: Oriented to self and place, appeared a bit brighter than yesterday , fair eye contact, disheveled, no acute distress, eating lunch. SPEECH: Soft and low, halting MOTOR: Mild tremor, no asterixis or other abnormal movements MOOD: "Lousy" AFFECT: Low, mood congruent, constricted range, non-labile, poorly related but improved from yesterday THOUGHT PROCESS: Perseverative on medications THOUGHT CONTENT: No SI/HI/AVH/SIB, but does not feel safe at home (SI might return), no apparent grandiosity, delusions, but with mild paranoia COGNITION: impaired attention, memory or concentration JUDGMENT: Poor-fair INSIGHT: Poor ASSESSMENT: 47-year-old with opiate use disorder on methadone maintenance therapy, anxiety, depression, likely sedative use disorder (Xanax) and stimulant use disorder (Adderall), with TBI hx in 1998, presenting with brother after SI statements and poor ADLs at home decompensating over the last several months unable to maintain utilities or care of her animals. Strong family history of schizophrenia. Patient with moderate TBI with memory loss and impulsivity, complicated by misuse and withdrawal of both stimumants and sedatives. At this time, pt is at risk of harm to self d/t grave disability and is in agreement with inpatient admission for psychiatric stabilization, maintenance of safety, medication management and aftercare planning. Pt appears less sedated today (not nodding) and in agreement with plan. PLAN: -Admit to [facility] on P[facility], in no bed then continue bed search , maintain safety, q15m in checks -continue meds at this time, monitor for withdrawal -Consider switching from Xanax to longer acting Klonopin -adderall was held in ED -NRT as needed -Regular diet -collateral
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
[2017-10-11 18:18] VITALS: BP 129/88
[2017-10-11 20:21] VITALS: BP 125/88
[2017-10-11] MEDS ORDERED: IBUPROFEN800 M1 (23:14)
[2017-10-11] MEDS ORDERED: PROCTOSOL-HC28.35 GM (23:15)
[2017-10-12 08:06] VITALS: BP 110/76
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
--- NOTE | 2017-10-12 12:07 | SOCIAL WORKER PROG NOTE PSYCH ---
Social Work Progress Note Progress Note Pt very upset over leaving a bag of clothes in her brothers car, she believes this was done intentionally. Pt too upset to speak about anything else at this time.
[2017-10-12 12:24] VITALS: BP 133/73
--- NOTE | 2017-10-12 13:04 | CPS PROVIDER INIT ASMT PSYCH ---
Psychiatric Admission Cutter Hot Knife's Note Reviewed: Yes Patient Seen and Examined: Yes Identifying Information: 46-year-old Chief Complaint: was brought into the emergency department by her brother and her [id number] who reported that the patient has been acting erratic and childlike Reaction to Hospitalization: The patient was admitted on a PEC History of Present Illness Onset of Illness: According to the evaluation by the production solderer Siri Siegel LCSW on 2017: "brother reported that she has been needing a lot of help with basic things including paying her rent and taking care of her dogs. The patient had severe traumatic brain injury in 1998. The patient also has had a history of addictions and has been lately on methadone plus a high dose of Xanax (6 mg per day) and high dose of Adderall (60 mg twice daily). According to the information gathered by the production solderer from the patient's brother the patient has been acting "childlike" and has --allegedly--made statements such as "I am tired of living" and "I want to kill myself", the patient also received an eviction notice by the landlord because of her behaviors at the apartment including allowing that her 2 pit bull dogs to urinate on the floor and not cleaning it up, has been accidentally locking herself out of her apartment 5 times recently and asking to be let in, left the toilet clogged and it flooded the bathroom, has not paid her paid her rent, as has been seen as having a change in her mental state and her demeanor by her family." Circumstances Leading to Admission: Erratic behavior Problem(s) Justifying Need for Admission: Erratic behavior Past Psychiatric History Past Diagnosis(es)- if any: Severe traumatic brain injury in 1998, 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 Opioid use disorder on methadone maintenance. 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 Opioid use disorder on methadone maintenance. Sedative hypnotic, and anxiolytic use disorder, severe (prescribe Xanax up to 6 mg a day since at least July 2017) History of Suicide Attempts or Gestures Reportedly the patient had a suicide attempt a week prior to her presentation to our emergency room Substance Abuse History: The patient is on methadone maintenance and was on a high dose of Xanax in the high dose of stimulant Allergies: Coded Allergies: prednisone (Severe, HIVES 09/09/17) tramadol (Severe, SHAKES 08/03/17) fluoxetine (From PROZAC) (SI 10/08/17) Home Med List: Alprazolam 2 MG TABLET 1 TAB PO BID ANXIETY #90 (Reported) Entered as Reported by Saundra Gay on 10/08/17 1718 Dextroamphetamine/Amphetamine (Dextroamp-Amphetamin 20 MG Tab) 20 MG TABLET 1 TAB PO TID ADHD #80 (Reported) Entered as Reported by Saundra Gay on 10/08/17 1720 Methadone HCl 10 MG/ML ORAL.CONC 76 MG PO DAILY MAINTENCE (Reported) Entered as Reported by Santhosh Gutierrez on 08/10/17 1310 Scheduled PRN Medications Albuterol Sulfate (Proair Hfa) 90 MCG HFA.AER.AD 2 PUF INH AD PRN ASTHMA #9 ( Reported) Entered as Reported by Saundra Gay on 10/08/17 1720 Miscellaneous Medications Hydroxyzine HCl (hydrOXYzine HCl) (Unknown Strength) TABLET (Unknown Dose) UNKNOWN #30 (Reported) Entered as Reported by Saundra Gay on 10/08/17 1721 - Include any medical condition(s) that may - impact the patient's recovery/remission Past History Medical History Neurological: NONE EENT: NONE Cardiovascular: HEART MURMUR Respiratory: asthma Gastrointestinal: NONE Hepatic: NONE Renal: NONE Musculoskeletal: ARTHRITIS Psychiatric: anxiety, ADD PANIC ATTACK Endocrine: NONE Blood Disorders: NONE Cancer(s): NONE LABEL CODER/Reproductive: NONE Isolation History: Standard Tetanus Vaccine: 04/23/15 Surgical History Surgical History: appendectomy Psychiatric Family/Social Hx Family History Psychiatric Illness: Reportedly the father may have had depression or anxiety since he was an alcoholic. Substance Use: Father was an alcoholic according to the patient Suicides: She denied completed suicide among blood relations Social History Living Situation: The patient was living in her own apartment but she might be at risk of infection Significant Relationships (family/friends): Brother and [id number] Education: Unknown please refer to the biopsychosocial assessment Vocation/Occupation: Unemployed please refer to the biopsychosocial assessment Legal: Patient denied Healthly Behaviors Screening Tobacco Screening Tobacco Use from ED Docu: Current Daily Use Daily Tobacco Use Amount/Type: => 5 Cigarettes daily - If tobacco counseling indicated - the following topics are required. - #1 Recognizing dangerous situations. - #2 Coping Skills. - #3 Basic information about quitting. Status of Tobacco Cessation Counseling: #1, #2 AND #3 Completed Cessation Med Status Nicotine Patch Ordered Alcohol Screening - ETOH screen POS if BAL >=80 or Audit-C>= M4/F3 Audit-C Score from Diag Assess: 0 Blood Alcohol Level: Lab Serum Alcohol < 10.0 MG/DL 10/08/17 1731 Alcohol Use Screening Results: Neg per Audit C &/or BAL - If ETOH counseling indicated - the following topics are required. - #1 Express concern about the patient's - drinking at unhealthy levels, include informing - of national norms for moderate drinking: - men <= 14 drinks/week, max 4 drinks/occasion - women <= 7 drinks/week, max 3 drinks/occasion - #2 Providing feedback, including linking alcohol to - negative physical effects (liver injury, hypertension) - negative emotional effects (relationship problems and - depression) - negative occupational consequences (reduced work - performance) - #3 Advising the patient to abstain from alcohol or - to drink below national norms for moderate drinking - (as listed above). Status of ETOH Use Counseling: N/A B/C NO ETOH Use Metabolic Screening - Screen if on a Neuroleptic Medication - Metabolic screening should include: - Blood Pressure, BMI, Glucose or Hgb A1c, & a - Lipid profile from within the past 365 days. Metabolic Screening Not Applicable, patient not on a neuroleptic. Exam and Plan Mental Status Examination Ambulation Status: Sedated but steady on her feet Appearance: Unremarkable appearance Attitude towards examiner: Cooperative Psychomotor activity: Normal psychomotor activity Behavior: Patient seems to be sedated Quality of speech: Slightly still slurred Affect: Constricted affect Mood: Reported that she is depressed and anxious Suicidal Ideation: Denied thinking about suicide today Homicidal Ideation: Denied thinking about violence or homicide Hallucinations: She denied hallucinations Paranoid/Delusional Material: She denied feeling paranoid , there were no delusions Difficulties with thought organization: The patient was coherent Insight: Poor Judgment: Poor Orientation: Oriented to place and person Cognition: Seems to have difficulties with attention concentration and information processing could be because of oversedation but she also has history of severe TBI Memory Function: Seems to have some difficulties with short-term memory but she is oversedated Estimate of intellectual functioning: Average Assets/Strengths Patient Identified Assets/Strengths: Patient has a supportive family Impression/Plan Impression and Plan: 47-year-old single with a history of severe TBI, on methadone maintenance , was on high dose of Xanax in high-dose of stimulant presented because of erratic behavior that seemed like delirium due to multiple substances - Include all active medical diagnosis that require tx DSM 5 Diagnosis(es): 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 Factors: Patient will be discharge if she continues to deny thoughts of suicide and once she exhibits better cognition and information processing and less disorganization
[2017-10-12 16:15] VITALS: BP 123/73
[2017-10-12 19:57] VITALS: BP 115/66
--- NOTE | 2017-10-13 07:23 | CP SOUTH PROGRESS NOTE PSYCH ---
Psych (Inpt) Progress Note Progress Note Laboratory Tests Urine Color (YEL,AMB,STR) PINK H Urine Clarity (CLEAR) HAZY H Urine pH (5.0 - 8.0) 7.0 Ur Specific [place] (1.001 - 1.035) 1.020 Urine Protein (NEG,<30 MG/DL) 100 H Urine Ketones (NEG) NEG Urine Nitrite (NEG) NEG Urine Bilirubin (NEG) NEG Urine Urobilinogen (0.1 - 1.0 EU/dl) 0.2 Ur Leukocyte Esterase (NEG) TRACE H Ur Microscopic SEDIMENT EXAMINED Urine RBC (0 - 5 /HPF) 25-50 H Urine WBC (0 - 2 /HPF) 3-5 H Ur Epithelial Cells (NONE,FEW) MANY H Urine Bacteria (NEG/NONE) MANY H Urine Mucus (FEW,NONE) FEW Urine Hemoglobin (NEG) LARGE H Urine Glucose (N MG/DL) NEG Vital Signs Date Time Temp Pulse B/P B/P O2 10/13 1210 84 110/75 10/13 0746 98.7 96 123/77 10/12 1957 99.5 99 115/66 10/12 1615 88 123/73 10/12 1224 99 133/73 Mental Status Examination alert, Cooperative, Normal psychomotor activity, constricted affect, depressed and anxious, Denied thinking about suicide today, Denied thinking about violence or homicide, She denied hallucinations, denied feeling paranoid , there were no delusions, Difficulties with thought organization, The patient was coherent, Oriented to place and person, Seems to have difficulties with attention concentration and information processing , Seems to have some difficulties with short-term memory but she is oversedated Assessment: Lilliana Quesada is a 47-year-old single with a history of severe TBI, on methadone maintenance, was on high dose of Xanax in high-dose of stimulant presented because of erratic behavior that seemed like delirium due to multiple substances Diagnoses): 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 Opioid dependence on maintenance treatment and Sedative hypnotic anxiolytic use disorder Stimulant use disorder Treatment Plan: Reduce methadone by 5 mg daily Change Klonopin to 1 mg during the day and 2 mg at bedtime start Gabapentin 600 mg four times daily , was on high dose of Xanax in high-dose of stimulant presented because of erratic behavior that seemed like delirium due to multiple substances Diagnosis(es): 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
[2017-10-13 07:46] VITALS: BP 123/77
[2017-10-13 12:10] VITALS: BP 110/75
--- NOTE | 2017-10-13 14:18 | SOCIAL WORKER PROG NOTE PSYCH ---
Social Work Progress Note Progress Note Pt has been attending groups, and med focused at this time. "I need ativan, I need water". Pt wanted to stay in group she was coloring and had takena a shower. Pt irritable and upset about dog and her brother.
[2017-10-13 16:08] VITALS: BP 101/63
[2017-10-13 19:52] VITALS: BP 128/75
--- NOTE | 2017-10-14 07:43 | CP SOUTH PROGRESS NOTE PSYCH ---
Psych (Inpt) Progress Note Progress Note Treatment team (JOSE RAUL, RN, Group/Activities Therapist, and Psychiatrist) discussed the pt.'s progress, inpatient treatment plan, and aftercare/discharge plans. Vital Signs Date Time Temp Pulse B/P O2 10/14 0810 97.1 90 108/79 10/13 1952 99.0 87 128/75 10/13 1608 84 101/63 Mental Status & Behavior: Pt. was alert, irritable/loud this morning, and marginally cooperative Normal psychomotor activity, irritable affect, mood remains "depressed and anxious" Pt. denied thinking about suicide today, denied thinking of violence or homicide , and denied hallucinations. Pt. 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
[2017-10-14 08:10] VITALS: BP 108/79
--- NOTE | 2017-10-14 08:27 | SOCIAL WORKER PROG NOTE PSYCH ---
Social Work Progress Note Progress Note Met with Lilliana today. She seemed a bit sedated. She was in group and appears to be visible in the milleu. She denied SI/HI, no AH/VH. She rated depression 8/ 10(worst) and anxiety 9/10. He can come in 10/17/17 at 1pm for a family meeting. She was upset about her (2) dogs, and has been trying to reach her brother, Kamari to see how they are doing. Lilliana knows she is being evicted doesn't think the process has started. She is concerned about her income SSDI "Only $750 per month" She stated "Klonopin make me sleep." She thinks she will be tapered completely off Methadone by discharge and does not want to stay on Methadone or return to [facility] In [place]. She wants to work with [facility]. Housing is an issue. She signed an CHRIS for her brother, Kamari Meadows. She agreed to a family meeting -Mon. 1pm with MEDARDO BarbaSunil and Dr. Mendez. TC - Kamari Quesada - Brother He stated with xanex, Klonopin and Methadone she had an episode and acting like a child. She is being evicted, things are bad at her apartment. He stated if she goes home, she is going to get killed by those dogs. They both fought. One dog is at [facility], and the other one is in her house. The [facility] will return him "Blue" to her. He fears something bad is going to happen to her or someone else. Kamari wants a letter that states she isn't mentally capable to care for a dog, she can't take care of herself. He stated "I have been dealing with hell." He stated he is hoping Care can help her (supervised housing or respite). He stated there is no utilites so she cannot return to her apartment. One of the dogs too a guys eye out. It's a dangerous situation. Her landlords don't want them on the premisis. He stated her mental status is so bed - she lost her income, utilities are being shut off. He states she cannot be alone - she needs someone to handle her income and monitor her medications. She cannot live alone. He stated she isn't conserved, he stated he was waiting for her kids to step-up but they don't. At baseline she sleeps in, and is not on point with anything, locks herself out of her apartment. She asks neighbor to brake a window. He stated she can't care for herself. He stated she has not been well for the past 5yrs. Discussed conservatorship, he is willing to go to [facility] to begin filing process and obtain more information.
[2017-10-14 12:07] VITALS: BP 125/73
[2017-10-14 16:11] VITALS: BP 124/67
--- NOTE | 2017-10-14 17:26 | SOCIAL WORKER PROG NOTE PSYCH ---
Social Work Progress Note Progress Note Concurrent review complete through the online [facility] portal and is listed as "pended." Pended Authorization # [id number] Client Authorization # [id number] Type of Request CONCURRENT
[2017-10-14 20:30] VITALS: BP 133/92
[2017-10-15 08:05] VITALS: BP 106/66
--- NOTE | 2017-10-15 10:33 | CP SOUTH PROGRESS NOTE PSYCH ---
Psych (Inpt) Progress Note Progress Note Include the following elements, when applicable: Involvement in the active treatment of the patient with behavioral observations of the patient and the patient's response to the treatment. Review of the ongoing treatment process in the context of the treatment plan. Indication of how multi-disciplinary staff members are carrying out the treatment plan. Plans for future interventions and recommendations for revision of the treatment plan. Liaison with other physicians/providers. Progress Note: Pt notes she slept well overnight. She then spoke at length about her "loves" listing ?five of her "lost loves." She noted that she slept better because of the aroumatherapy that was offerened. She became increasingly agitated during the interview. Denies SI or HI. Current Medications Sig/Ivan Start time Last Medication Dose Route Stop Time Status Admin Benztropine Mesylate 1 MG Q6P PRN 10/14 1445 AC PO Clonazepam 2 MG AT BEDTIME 10/13 2100 AC 10/14 PO 10/20 2058 2153 Gabapentin 600 MG FOUR TIMES A DAY 10/13 1400 AC 10/15 PO 0914 Haloperidol 5 MG Q6P PRN 10/14 1445 AC PO Haloperidol 5 MG Q6P PRN 10/14 1445 AC IM Haloperidol 5 MG Q6P PRN 10/09 1200 DC 10/12 PO 2021 Hydrocortisone 1 ARIAN BID 10/08 1745 AC 10/15 EXT 0915 Hydroxyzine HCl 50 MG Q8P PRN 10/15 0037 AC 10/15 PO 0037 Ibuprofen 600 MG Q4 HRS NEEDED PRN 10/13 1300 AC PO Lorazepam 2 MG Q6P PRN 10/14 1445 AC PO Lorazepam 2 MG Q6P PRN 10/14 1445 AC IM Methadone HCl 45 MG 00 10/16 0800 AC PO Methadone HCl 50 MG 0800 10/15 0800 DC 10/15 PO 10/15 0801 0749 Nicotine 14 MG DAILY 10/08 1830 AC 10/15 TOP 0914 Polyethylene Glycol 17 GM DAILY 10/12 1450 AC PO Senna/Docusate Sodium 1 TAB BID PRN 10/12 1500 AC PO Vital Signs Date Time Temp Pulse Resp B/P B/P Pulse O2 O2 Flow FiO2 Mean Ox Delivery Rate 10/15 08 98.1 88 106/66 10/14 2030 98.8 93 133/92 10/14 1611 92 124/67 10/14 1207 88 125/73 Appearance: older than stated age Speech : increased rate, rhythm, volume and nl prosody Behavior: cooperative but guarded Motor: + psychomotor agitation Mood : "alright!!" Affect : labile, anxious, irritable, inappropriate, constricted Thought process: tangential at best Thought content : ++ delusions or paranoia, denied SI or HI Perceptions: denied AVHs Insight: poor Judgment: poor A/P: Pt with Major NCD with behavioral disturbance 2/2 TBI with continued psychotic and mood sx. As working diagnosis documented prior seems to be underlying delirum, would treat as will presist longer without treatment. - Start 0.25mg risperidone BID, given pt has hx of oversedation - Otherwise, continue current medication regimen
[2017-10-15 15:57] VITALS: BP 136/87
[2017-10-15 19:57] VITALS: BP 131/86
[2017-10-16 09:15] VITALS: BP 116/67
--- NOTE | 2017-10-16 10:45 | CP SOUTH PROGRESS NOTE PSYCH ---
Psych (Inpt) Progress Note Progress Note Include the following elements, when applicable: Involvement in the active treatment of the patient with behavioral observations of the patient and the patient's response to the treatment. Review of the ongoing treatment process in the context of the treatment plan. Indication of how multi-disciplinary staff members are carrying out the treatment plan. Plans for future interventions and recommendations for revision of the treatment plan. Liaison with other physicians/providers. Progress Note: Pt notes that she has hemmorroids that she is struggling with today. Also noted increasing anxiety and requested higher dosing and more freqent dosing of klonopin. Pt very intrusive. Denies SI or HI. Current Medications Sig/Ivan Start time Last Medication Dose Route Stop Time Status Admin Benztropine Mesylate 1 MG Q6P PRN 10/14 1445 AC PO Calcium Carbonate 500 MG DAILY PRN 10/16 1030 AC PO Clonazepam 2 MG AT BEDTIME 10/13 2100 AC 10/15 PO 10/205 Gabapentin 600 MG FOUR TIMES A DAY 10/13 1400 AC 10/16 PO 0929 Haloperidol 5 MG Q6P PRN 10/14 1445 AC PO Haloperidol 5 MG Q6P PRN 10/14 1445 AC IM Hydrocortisone 1 ARIAN BID 10/08 1745 AC 10/16 EXT 0928 Hydroxyzine HCl 50 MG Q8P PRN 10/15 0037 AC 10/15 PO 1615 Ibuprofen 600 MG Q4 HRS NEEDED PRN 10/13 1300 AC 10/16 PO 1013 Lorazepam 2 MG .STK-MED ONE 10/15 1148 DC PO 10/15 1149 Lorazepam 2 MG Q6P PRN 10/14 1445 AC 10/15 PO 1149 Lorazepam 2 MG Q6P PRN 10/14 1445 AC IM Methadone HCl 40 MG 00 10/17 0800 AC PO 10/17 0801 Methadone HCl 45 MG 00 10/16 0800 DC 10/16 PO 10/16 0801 0927 Nicotine 2 MG Q2P PRN 10/15 1630 AC PO Nicotine 14 MG DAILY 10/08 1830 AC 10/16 TOP 0928 Polyethylene Glycol 17 GM DAILY 10/12 1450 AC PO Risperidone 0.25 MG BID 10/15 2100 AC 10/16 PO 0929 Senna/Docusate Sodium 1 TAB BID PRN 10/12 1500 AC PO Simethicone 80 MG Q4P PRN 10/15 1400 AC 10/16 PO 0927 Witch Liz 1 JAR Q8P PRN 10/16 1030 AC TOP Vital Signs Date Time Temp Pulse Resp B/P B/P Pulse O2 O2 Flow FiO2 Mean Ox Delivery Rate 10/16 0815 98.3 94 116/67 10/15 1956 99.2 98 131/86 10/15 1557 92 136/87 Appearance: older than stated age Speech : increased rate, rhythm, volume and nl prosody Behavior: cooperative but guarded Motor: + psychomotor agitation Mood : "my anxiety is so bad" Affect : labile, not anxious, extremely irritable, inappropriate, constricted Thought process: tangential at best Thought content : ++ delusions or paranoia, denied SI or HI Perceptions: denied AVHs Insight: poor Judgment: poor A/P: Pt with Major NCD with behavioral disturbance 2/2 TBI with continued psychotic and mood sx. As working diagnosis documented prior seems to be underlying delirum, would treat as will presist longer without treatment. - Continue 0.25mg risperidone BID, given pt has hx of oversedation - Otherwise, continue current medication regimen
[2017-10-16 12:15] VITALS: BP 129/79
[2017-10-16 15:57] VITALS: BP 135/61
[2017-10-16 18:55] VITALS: BP 122/72
[2017-10-16 20:04] VITALS: BP 105/64
[2017-10-17 07:52] VITALS: BP 105/67
--- NOTE | 2017-10-17 07:52 | CP SOUTH PROGRESS NOTE PSYCH ---
Psych (Inpt) Progress Note Progress Note I reviewed Dr. Renteria's notes for Tue and October 15 and 2017 Treatment team (JOSE RAUL, RN, Group/Activities Therapist, and Psychiatrist) discussed the pt.'s progress, inpatient treatment plan, and aftercare/discharge plans. Vital Signs: Date Time Temp Pulse B/P 10/17 0752 98.1 89 105/67 10/17 2003 98.6 96 105/64 Family meeting with patient's brother and Barbara Carreon LCSW Mental Status & Behavior: Although Dr. Renteria's note from yesterday indicated the presence of paranoid delusions, I was unable to elicit specific examples today. patient was loud and verbally abusive/rude during a family meeting Pt. was alert and oriented. She was demanding, irritable, rude, uncooperative. She reported that her anxiety is bad and that she is not on the right dose of Klonopin (she thinks she needs a higher dose). Pt. denied thinking about suicide today, denied thinking of violence or homicide, and denied hallucinations. Pt. was coherent for the most part with some tangents and circumstantial and perseverative speech, some difficulties with attention concentration and information processing Assessment: Lilliana Quesada is a 47-year-old Single who was admitted against her will on (on a PEC). Lilliana has history of severe TBI, on methadone maintenance, was on high dose of Xanax in high-dose of stimulant presented because of erratic behavior that seemed like delirium due to multiple substances (2 mg Xanax TID, Adderall 60 mg BID, Methadone, etc.) Since her admission to [facility], Lilliana has shown improvement in her alertness and ability to process information but remains irritable, angry, verbally abusive and dysregulated ? paranoia (as per Dr. Renteria's observations) Diagnoses (Last Update: 10/17/2017): Major Neurocognitive Disorder due to TBI Opioid Use Disorder, severe, on maintenance treatment and Sedative, Hypnotic, or Anxiolytic Use Disorder Stimulant Use disorder Treatment Plan Update: Continue Klonopin 1 mg during the day and 2 mg at bedtime Change /reduce gabapentin to 600 mg three times daily Continue Methadone 40 mg daily
--- NOTE | 2017-10-17 11:52 | SOCIAL WORKER PROG NOTE PSYCH ---
See Addendum Social Work Progress Note Progress Note Alma Garcia completed online auth it is pended as of today 10/17/17. [id number] auth #
[2017-10-17 12:27] VITALS: BP 151/66
--- NOTE | 2017-10-17 13:48 | SOCIAL WORKER PROG NOTE PSYCH ---
Social Work Progress Note Progress Note Pt had a family meeting with her Brother Jose Alberto, pt needs a referral to [facility] case management I left a voicemail with Miroslava and her brother has been in contact as well. Pt is unrealistic unable to process and could not continue to stay in our meeting she continued to perseverate over the dogs she has taken of. Her brother is a good resource and is aware she is being evicted and will need a conservator and long term care phlebotomist care.
[2017-10-17 15:57] VITALS: BP 102/72
[2017-10-17 20:15] VITALS: BP 119/76
--- NOTE | 2017-10-18 08:33 | CP SOUTH PROGRESS NOTE PSYCH ---
Psych (Inpt) Progress Note Progress Note Treatment team (JOSE RAUL, RN, Group/Activities Therapist, and Psychiatrist) discussed the pt.'s progress, inpatient treatment plan, and aftercare/discharge plans. Vital Signs: Date Time Temp Pulse B/P 10/18 0923 97.5 96 115/53 10/17 2014 98.9 98 119/76 Mental Status: loud and rude alert and oriented, demanding, irritable, marginally cooperative. She reported that her anxiety is high. Med-focused She denied thinking about suicide, denied thinking of violence or homicide, and denied hallucinations. Pt. was coherent for the most part with some tangents and circumstantial and perseverative speech, some difficulties with attention concentration and information processing Assessment: Lilliana Quesada is a 47-year-old Single who was admitted against her will on (on a PEC). Lilliana has history of severe TBI, on methadone maintenance, was on high dose of Xanax in high-dose of stimulant presented because of erratic behavior that seemed like delirium due to multiple substances (2 mg Xanax TID, Adderall 60 mg BID, Methadone, etc.). Since her admission to [facility], Lilliana has shown improvement in her alertness and ability to process information but remains irritable, angry, verbally abusive and dysregulated. I did not observe any paranoid or other delusions yesterday or today. 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
[2017-10-18 09:23] VITALS: BP 115/53
[2017-10-18 12:26] VITALS: BP 113/52
--- NOTE | 2017-10-18 15:16 | SOCIAL WORKER PROG NOTE PSYCH ---
Social Work Progress Note Progress Note LUCIANO VERDE [id number] 1970 LUCIANO VERDE [id number] Pended Authorization # Client Authorization # Type of Request [id number] CONCURRENT Date of Admission/ Start of Services Requested From Submission Date 10/11/2017 10/18/2017 10/18/2017
[2017-10-18 16:42] VITALS: BP 108/70
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
[2017-10-18 20:09] VITALS: BP 126/71
[2017-10-19 08:18] VITALS: BP 108/70
--- NOTE | 2017-10-19 09:13 | CP SOUTH PROGRESS NOTE PSYCH ---
Psych (Inpt) Progress Note Progress Note Treatment team (JOSE RAUL, RN, Group/Activities Therapist, and Psychiatrist) discussed the pt.'s progress, inpatient treatment plan, and aftercare/discharge plans. Mental Status: loud but not rude today alert and oriented, less demanding, less irritable, she was cooperative today. She reported that her anxiety went down and that she is ready for discharge tomorrow She denied thinking about suicide, denied thinking of violence or homicide, and denied hallucinations. Pt. was coherent for the most part with some tangents and circumstantial and perseverative speech, some difficulties with attention concentration and information processing Assessment: Lilliana Quesada is a 47-year-old Single who was admitted on 10/11/2017 because of erratic behavior that seemed like delirium due to multiple substances (2 mg Xanax TID, Adderall 60 mg BID, Methadone, etc.). She also has history of severe TBI, Since her admission to [facility], Lilliana has shown improvement in her alertness and ability to process. I did not observe any paranoid or other delusions yesterday or today. 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
[2017-10-19 12:32] VITALS: BP 105/70
[2017-10-19 16:11] VITALS: BP 117/55
[2017-10-19 19:57] VITALS: BP 122/75
[2017-10-20 08:25] VITALS: BP 111/73
[2017-10-20] MEDS ORDERED: MIRALAX119 GM PO (10:07)
[2017-10-20] MEDS ORDERED: NICOTINE PATCH1 EAC2 TOP (10:07)
[2017-10-20] MEDS ORDERED: KLONOPIN1 M1 PO (10:07)
[2017-10-20] MEDS ORDERED: METHADONE HCL10 M1 PO (10:07)
[2017-10-20] MEDS ORDERED: RISPERDAL1 M1 PO (10:07)
[2017-10-20] MEDS ORDERED: SENNA PLUS TAB1 EACH PO (10:07)
[2017-10-20] MEDS ORDERED: GABAPENTIN300 M2 PO (10:07)
[2017-10-20] MEDS ORDERED: CHLORPROMAZINE25 M2 PO (10:07)
[2017-10-20] MEDS ORDERED: HYDROCORTISO28.35 GM EXT (10:07)
[2017-10-20] MEDS ORDERED: IBUPROFEN600 M1 PO (10:07)
--- NOTE | 2017-10-20 10:11 | Patient Discharge Instructions ---
Psych Discharge Inst General Discharge Information Reason for Admission: erratic behavior Psy Discharge Primary Diag+ Andrea Neurocognitive DO Psy Discharge Secondary Diag+ Opioid Use Disorder Summary Tests/Major Procedures Lab Serum Alcohol < 10.0 MG/DL 10/08/17 1731 Cholesterol 168 MG/DL 10/12/17 0630 Cholesterol/HDL Ratio 4 % 10/12/17 0630 HDL Cholesterol 39 mg/dL L 10/12/17 0630 Hemoglobin A1c 5.6 % 10/12/17 0630 LDL Cholesterol, Calc 105 mg/dL 10/12/17 0630 Triglycerides 123 mg/dL 10/12/17 0630 Studies Pending at DC: none Patient Instructions Contact Information Your Psychiatrist on [facility] was Trish HIGGINS,Reji * If you are experiencing an emergency related to this hospitalization, please call [phone] to contact the treating psychiatrist or the psychiatrist-on- call. * To Request a copy of your medical records, please contact the Medical Records Department at [phone]. * To request results of studies pending at the time of discharge, please call [phone]. * Continue your Medications until directed to stop by your Healthcare provider. General Medication Information Please continue to take your new medications and your continued home medications , unless otherwise indicated on your discharge medication list, or unless directed by your MD or SALES OPERATIONS SPECIALIST to stop them. Special Instructions Diet Regular Activity Normal - Tobacco Use Treatment Offered Post DC Medications Offered: Script Given-See Med List Post DC Tobacco Treatment Plan: Refused Tobacco Tx Pgm - EtOH/Drug Use D/O Treatment Offered Post DC Medications Offered: Script Given-See Med List Post DC EtOH/SubAbuse TX Plan: Other SubAbuse/Dual Pgm Metabolic Screening Patient on a neuroleptic(s) . BMI: 25.600 Blood Pressure: 111/73 Laboratory Results From [facility] (If applicable): Lab Serum Alcohol < 10.0 MG/DL 10/08/17 1731 Cholesterol 168 MG/DL 10/12/17 0630 Cholesterol/HDL Ratio 4 % 10/12/17 0630 HDL Cholesterol 39 mg/dL L 10/12/17 0630 Hemoglobin A1c 5.6 % 10/12/17 0630 LDL Cholesterol, Calc 105 mg/dL 10/12/17 0630 Triglycerides 123 mg/dL 10/12/17 0630 Advance Directives Does the Patient have Medical Advance Directives No/Refused further info Does Pt have Psychiatric Advance Directives? No/Refused further info Does Patient have a Designated Surrogate Decision Maker: No Information About Psychiatric Advance Directives Provided? Refused Discharge Plan Post Hospital Treatment Plan: [facility]
[2017-10-20 12:47] VITALS: BP 117/67
--- NOTE | 2017-10-20 14:00 | DISCHARGE SUMMARY REPORT-PSYCH ---
Visit Information Visit Dates/Diagnosis' Admission Date: 10/11/17 Discharge Date: 10/20/17 Reason for Admission: erratic behavior Psy Discharge Primary Diag: Andrea Neurocognitive DO Psy Discharge Secondary Diag: Opioid Use Disorder Hospital Course Course Allergies: Coded Allergies: prednisone (Severe, HIVES 09/09/17) tramadol (Severe, SHAKES 08/03/17) fluoxetine (From PROZAC) (SI 10/08/17) Hospital Course/TX Response: Treatment team (SPECIALTY SALES REPRESENTATIVE, RN, Group/Activities Therapist, and Psychiatrist) discussed the pt.'s progress, inpatient treatment plan, and aftercare/discharge plans. Mental Status: talkative and loud but not angry alert and oriented, less demanding, less irritable, she was cooperative, reported that her anxiety is manageable and that she is ready for discharge She denied thinking about suicide, denied thinking of violence or homicide, and denied hallucinations. Pt. was coherent for the most part with some tangents and circumstantial and perseverative speech, some difficulties with attention concentration and information processing Assessment: Lilliana Quesada is a 47-year-old Single who was admitted on 10/11/2017 because of erratic behavior that seemed like delirium due to multiple substances (2 mg Xanax TID, Adderall 60 mg BID, Methadone, etc.). She also has history of severe TBI, Since her admission to [facility], Lilliana has shown improvement in her alertness and ability to process. I did not observe any paranoid or other delusions yesterday or today. 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 Discharge Instructions General Discharge Information Discharge Diet Regular Discharge Activity Normal Referrals Ordered Referrals Provider Referral 10/24/17 For Groups: [[facility]] [address] [phone] Intake appointment for case management and clinical services (IOP): 10/24/17, at 9:30am Provider Referral 10/21/17 [facility] [address] [place] [address] Patient to visit [facility] between 9am and 3pm on 10/21/17. Outpatient Psych - Substance 10/26/17 [address] [facility], [place] [id number] Smoking Cessation Group [address] [phone] Group meets every other Tuesday at 4pm Next group: Tuesday10/26/17 at 4pm Prescriptions Stop taking the following medications: Methadone HCl (Methadone HCl) 10 MG/ML ORAL.CONC ORAL DAILY Alprazolam (Alprazolam) 2 MG TABLET ORAL TWICE DAILY Qty = 90 Dextroamphetamine/Amphetamine (Dextroamp-Amphetamin 20 MG Tab) 20 MG TABLET ORAL THREE TIMES DAILY Qty = 80 Hydroxyzine HCl (hydrOXYzine HCl) (Unknown Strength) TABLET Qty = 30 Ibuprofen (Ibuprofen) 800 MG TABLET Qty = 21 Continue taking these medications: Albuterol Sulfate (Proair Hfa) 90 MCG HFA.AER.AD 2 Puff Inhale through mouth As Directed as needed for ASTHMA Qty = 9 Comments: NOT GIVEN IN THE HOSPITAL. Hydrocortisone (Proctosol-Hc) 2.5 % CREAM.APPL Qty = 1 Comments: Last Taken: 10/20/17 Time: 0800 Start taking the following new medications: Nicotine (Nicotine Patch) 14 MG/24 HOUR PATCH.TD24 14 Milligram On the skin DAILY as needed for smoking cessation Qty = 15 No Refills Comments: Last Taken: 10/20/17 Time: 0800 Ibuprofen (Ibuprofen) 600 MG TABLET 600 Milligram ORAL EVERY 4 HOURS NEEDED as needed for musculoskeletal pain Qty = 60 No Refills Comments: Last Taken: 10/17/17 Time: 2130 Methadone Hydrochloride (Methadone HCl) 10 MG TABLET 30 Milligram ORAL DAILY @8 AM Qty = 1 No Refills Comments: Last Taken: 10/20/17 Time: 0800 Clonazepam (Klonopin) 1 MG TABLET 1 Milligram ORAL TWICE DAILY Qty = 30 No Refills Comments: Last Taken: 10/20/17 Time: 0800 Gabapentin (Gabapentin) 300 MG CAPSULE 600 Milligram ORAL THREE TIMES DAILY Qty = 90 No Refills Comments: Last Taken: 10/20/17 Time: 0800 Chlorpromazine HCl (Chlorpromazine HCl) 25 MG TABLET 75 Milligram ORAL EVERY 4 HOURS NEEDED as needed for ANXIETY Qty = 90 No Refills Comments: Last Taken: 10/19/17 Time: 2300 Risperidone (Risperdal) 1 MG TABLET 1 Milligram ORAL TWICE DAILY Qty = 30 No Refills Comments: Last Taken: 10/20/17 Time: 0800 Polyethylene Glycol 3350 (Miralax) 17 GRAM/DOSE POWDER 17 Gram ORAL DAILY Qty = 15 No Refills Comments: Last Taken: 10/19/17 Time: 0900 Sennosides/Docusate Sodium (Senna Plus Tablet) 8.6 MG-50 MG TABLET 1 Tablet ORAL TWICE DAILY as needed for CONSTIPATION Qty = 30 No Refills Comments: Last Taken: 10/19/17 Time: 2000 Hydrocortisone (Hydrocortisone) 0.5 % CREAM..G. 1 Application ON SKIN TWICE DAILY Qty = 1 No Refills Studies Pending at Discharge none
--- NOTE | 2017-10-20 17:49 | SOCIAL WORKER PROG NOTE PSYCH ---
Social Work Progress Note Progress Note This functional tester typewriters met with patient. She described her mood as "good" and denied SI/HI /hallucinations. Patient accepted the intake date/time for IOP and case management at [facility] of 10/24/17 at 9:30am. She also accepted the information for the smoking cessation group. Patient was informed of this functional tester typewriters's conversation with [facility] this robb. This functional tester typewriters spoke with Chuyita at [facility] who instructed the patient to present to their clinic tomorrow, 10/21/17, between 9am and 3pm to meeting with their doctor. Patient agreed. Patient stated that she feels safe discharging today and identified a safety plan to utilize the crisis numbers and warm lines if needed as well as going to an ER. She denied having any access to weapons or guns. She stated that her brother will provide transportation home from the hospital today. Patient did not need any other services, appointments or referrals made and stated that she would contact her primary care provider to schedule an appointment. While speaking with Giuliana from [facility] yesterday, she asked if the patient would go to a rehab. This inquiry was relayed to the patient, to which she stated that she was not in need in that level of care and wanted to attend IOP at [facility]. Patient requested that a letter was faxed to [address] regarding a court date that she reported having on 10/10/17. She did not know the name, number or fax number for this. this functional tester typewriters and patient were unable to do so, despite efforts to contact the court and clarify. Barbara Carreon LCSW provided the patient with a letter regarding her hospital admission. Patient stated that she would contact her v/stol landing signal officer as well. Patient's discharge plan and plan to return home was reviewew with Dr. Chambers prior to discharge. Faxed Referral(s) 1 Referred To: [facility] Transition of Care Documents sent: Health Summary Faxed to: [facility], attn: Emily Fax #: [phone] Faxed by: Leonie Elizabeth LCSW Date faxed: 10/20/17 Time Faxed: [phone] Faxed Referral(s) 2 Referred To: [facility] Transition of Care Documents sent: Health Summary Faxed to: [facility] Fax #: [phone] Faxed by: Leonie Elizabeth [facility] Date faxed: 10/20/17 Time Faxed: [phone]
== END 2017-10-20 13:59 | DRG 757 ==
LOC: ERH 16:43 → CP SOUTH 10-11 13:39 → ERHI 10-11 13:39 → ENTRNSPT 10-11 17:02 → EDTRNSPT 10-11 17:24 → CMPTRNSPT 10-11 17:58 → CP SOUTH 10-11 18:21
PROVIDERS: Physician Assistant; Psychiatry & Neurology Psychiatry
DX: F01.50 Vascular dementia, unspecified severity, without behavioral disturbance, psychotic disturbance, mood disturbance, and anxiety (principal); F11.90 Opioid use, unspecified, uncomplicated
CPT/HCPCS: 36415; 80307; 81001; 87086; 93005; 93010; G0463; G0480; J1630

== ENCOUNTER 2017-10-23 11:58 | Emergency (ER) | payer OTHER ==
[~2017-10-23] VITALS: Ht 157.5 cm; Wt 73.0 kg
[~2017-10-23 11:58] MED LIST changes: +ALPRAZOLAM2 M2 PO; +CHLORPROMAZINE25 M2 PO; +DEXTROAMP-AMPHE20 MG PO; +GABAPENTIN300 M2 PO; +HYDROCORTISO28.35 GM EXT; +HYDROXYZINE HCL50 M2; +IBUPROFEN800 M1; +KLONOPIN1 M1 PO; +METHADONE HCL10 M1 PO; +MIRALAX119 GM PO; +NICOTINE PATCH1 EAC2 TOP; +PROAIR HFA8.5 GM INH; +PROCTOSOL-HC28.35 GM; +RISPERDAL1 M1 PO; +SENNA PLUS TAB1 EACH PO
[2017-10-23 12:05] VITALS: BP 113/73
== END 2017-10-23 12:15 | disposition admitted as inpatient to this hospital (09) ==
LOC: ERH 11:58
DX: F41.9 Anxiety disorder, unspecified (principal)
CPT/HCPCS: 80307

== ENCOUNTER 2017-10-31 12:41 | Emergency (ER) | payer OTHER ==
--- NOTE | 2017-10-31 12:48 | ED SKIN/ALLERGY COMPLAINT ---
History of Present Illness General Chief Complaint: Skin Rash/ Abcess Stated Complaint: POSION ARCENIO AND ECZEMA Source: patient Exam Limitations: no limitations Vital Signs & Intake/Output Vital Signs & Intake/Output Vital Signs Date Time Temp Pulse Resp B/P B/P Pulse O2 O2 Flow FiO2 Mean Ox Delivery Rate 10/31 1250 97.2 79 16 133/69 99 Room Air Allergies Coded Allergies: prednisone (Severe, HIVES 09/09/17) tramadol (Severe, SHAKES 08/03/17) fluoxetine (From PROZAC) (SI 10/08/17) Reconcile Medications Albuterol Sulfate (Proair Hfa) 90 MCG HFA.AER.AD 2 PUF INH AD PRN ASTHMA ( Reported) Chlorpromazine HCl 25 MG TABLET 75 MG PO Q4 HRS NEEDED PRN ANXIETY Clonazepam (Klonopin) 1 MG TABLET 1 MG PO BID anxiety Gabapentin 300 MG CAPSULE 600 MG PO TID anxiety Hydrocortisone (Proctosol-Hc) 2.5 % CREAM.APPL RASH (Reported) Hydrocortisone 0.5 % CREAM..G. 1 ARIAN EXT BID eczema Hydroxyzine Hydrochloride (Atarax) 50 MG TAB 1 TAB PO TID ITCHING Ibuprofen 600 MG TABLET 600 MG PO Q4 HRS NEEDED PRN musculoskeletal pain Methadone Hydrochloride (Methadone HCl) 10 MG TABLET 30 MG PO 0800 opioid use Methylprednisolone. (Medrol) 4 MG TAB.DS.PK 1 DP PO AD contact dermatitis 6 on day 1 then reduce by one tablet daily until gone Nicotine (Nicotine Patch) 14 MG/24 HOUR PATCH.TD24 14 MG TOP DAILY PRN smoking cessation Polyethylene Glycol 3350 (Miralax) 17 GRAM/DOSE POWDER 17 GM PO DAILY constipation Risperidone (Risperdal) 1 MG TABLET 1 MG PO BID paranoia Sennosides/Docusate Sodium (Senna Plus Tablet) 8.6 MG-50 MG TABLET 1 TAB PO BID PRN CONSTIPATION Triage Nurses Notes Reviewed? yes Onset: Abrupt Duration: day(s):, constant Timing: recent history Severity: moderate, severe Location: generalized No Modifying Factors: none HPI: 47-year-old female comes into the emergency room for further evaluation of generalized rash. Patient reports that she had contact with somebody that was diagnosed of poison arcenio and she was using the same blanket that she was using. She was possibly exposed to the oils. She has a history of eczema. She complains of generalized rash is itching. (Jose Luis Neely) Past History Travel History Traveled to [place] past 21 day No Medical History Any Pertinent Medical History? see below for history Neurological: NONE EENT: NONE Cardiovascular: HEART MURMUR Respiratory: asthma Gastrointestinal: NONE Hepatic: NONE Renal: NONE Musculoskeletal: ARTHRITIS Psychiatric: anxiety, ADD PANIC ATTACK Endocrine: NONE Blood Disorders: NONE Cancer(s): NONE BUTCHER ASSISTANT/Reproductive: NONE Tetanus Vaccine: 04/23/15 Surgical History Surgical History: appendectomy, Psychosocial History Who do you live with Patient/Self What is your primary language Macedonian Family History Hx Contributory? No (Jose Luis Neely) Review of Systems Review of Systems Constitutional: Reports: no symptoms. EENTM: Reports: no symptoms. Respiratory: Reports: no symptoms. Cardiovascular: Reports: no symptoms. GI: Reports: no symptoms. Genitourinary: Reports: no symptoms. Musculoskeletal: Reports: no symptoms. Skin: Reports: see HPI. Neurological/Psychological: Reports: no symptoms. Hematologic/Endocrine: Reports: no symptoms. Immunologic/Allergic: Reports: no symptoms. All Other Systems: Reviewed and Negative (Jose Luis Neely) Physical Exam Physical Exam General Appearance: well developed/nourished, mild distress Head: atraumatic Eyes: Bilateral: normal appearance. Ears, Nose, Throat: normal ENT inspection, hearing grossly normal Neck: normal inspection Respiratory: no respiratory distress Back: normal inspection Extremities: normal inspection, normal range of motion, no edema Neurologic/Psych: awake, alert, oriented x 3, normal mood/affect Skin: intact, rash Skin Problem Location: generalized Skin Problem Character: vesicular papular rash generalized, erythematous, calamine lotion covering entire body obscuring the rash slightly (Jose Luis Neely) Progress Differential Diagnosis: abscess/cellulitis, allergic reaction, anaphylaxis, contact dermatitis, drug reaction Plan of Care: Current Medications Sig/Ivan Start time Last Medication Dose Stop Time Status Admin Methylprednisolone 125 MG ONCE ONE 10/31 1300 UNVr (Solu Medrol) 10/31 1301 (Jose Luis Neely) Departure Departure Disposition: HOME OR SELF CARE Condition: Stable Clinical Impression Primary Impression: Contact dermatitis Referrals: Amy Costa APRN (PCP/Family) Additional Instructions: TakeMEDROL DOSE PACK and hydroxyzine as prescribed. Follow-up with primary care doctor. Return if any concerns worsening symptoms. Please go over all results of today's visit with your primary care doctor. Contact your primary care doctor to let them know you were here in the emergency room. There may be nonspecific findings which may not be related to your visit today here in the emergency room but may require further evaluation and chronic monitoring by your primary care doctor. If you had a laceration today the chance of foreign body always remains. You should follow-up with your primary care doctor for recheck in 3-5 days for a wound check. If you had an x-ray done there is a chance that a fracture could have been missed on initial read and you should follow-up with your primary care doctor for repeat x-rays if symptoms persist. If your blood pressure was elevated here in the emergency room please have rechecked by meena primary care doctor within the next 48. If you were prescribed a narcotic here in the emergency room or any type of controlled substances you're not allowed to drive while taking this medication or operate any type of heavy machinery. Narcotics can make you feel lightheaded dizziness nausea and can cause constipation. You may need to chicken picker a stool softener. Thank you for choosing [facility] emergency room. Please return to the emergency room immediately if you have any other concerns worsening of symptoms. Departure Forms: Customer Survey General Discharge Information Prescriptions: Current Visit Scripts Methylprednisolone. (Medrol) 1 DP PO AD #1 DP 6 on day 1 then reduce by one tablet daily until gone Hydroxyzine Hydrochloride (Atarax) 1 TAB PO TID #30 TAB Comments 10/31/2017 3:26:59 PM Patient clinically looks well. Patient is no apparent distress. Patient is nontoxic-appearing. Rash most consistent with contact dermatitis. Follow-up with PCP. Return if any other concerns worsening symptoms. (Jose Luis Neely) PA/CHALK MACHINE OPERATOR Co-Sign Statement Statement: ED Attending supervision documentation- [] I saw and evaluated the patient. I have also reviewed all the pertinent lab results and diagnostic results. I agree with the findings and the plan of care as documented in the PA's/CHALK MACHINE OPERATOR's documentation. [X] I have reviewed the ED Record and agree with the PA's/CHALK MACHINE OPERATOR's documentation. [] Additions or exceptions (if any) to the PAs/CHALK MACHINE OPERATOR's note and plan are summarized below: [] (Deshaun Baker DO)
[2017-10-31 12:50] VITALS: BP 133/69
[2017-10-31] MEDS ORDERED: MEDROL4 M2 PO (13:12)
[2017-10-31] MEDS ORDERED: HYDROXYZINE HCL50 M1 PO (13:12)
== END 2017-10-31 14:04 ==
LOC: ERH 12:41
DX: L25.9 Unspecified contact dermatitis, unspecified cause (principal)
CPT/HCPCS: 96372; J2930

== ENCOUNTER 2017-11-09 13:04 | Emergency (ER) | payer OTHER ==
[~2017-11-09 13:04] MED LIST changes: +MEDROL4 M2 PO
[2017-11-10] MEDS ORDERED: KEFLEX750 M1 PO (10:23)
== END 2017-11-09 13:31 | disposition admitted as inpatient to this hospital (09) ==
LOC: ERH 13:04
DX: F41.9 Anxiety disorder, unspecified (principal)
CPT/HCPCS: 99281

== ENCOUNTER 2017-11-09 15:33 | Emergency (ER) | payer OTHER ==
--- NOTE | 2017-11-09 16:09 | ED GENERAL ADULT ---
History of Present Illness General Chief Complaint: Psychiatric Related Complaint Stated Complaint: BIBA PAPERED BY POLICE FOR TEAGAN PEDRAZA Source: patient Exam Limitations: no limitations Vital Signs & Intake/Output Vital Signs & Intake/Output Vital Signs Date Time Temp Pulse Resp B/P B/P Pulse O2 O2 Flow FiO2 Mean Ox Delivery Rate 11/10 812 97.6 88 18 118/74 98 Room Air 11/10 0635 98.1 93 18 107/72 99 Room Air 11/10 0021 98.3 82 18 120/67 98 Room Air 11/09 2151 98.0 76 16 129/78 98 Room Air 11/09 1817 98.1 100 14 119/67 100 Room Air 11/09 1731 Room Air 11/09 1604 97.6 110 16 139/90 100 Room Air ED Intake and Output 11/10 0000 11/09 1200 Intake Total 300 Output Total Balance 300 Intake, Oral 300 Reconcile Medications Albuterol Sulfate (Proair Hfa) 90 MCG HFA.AER.AD 2 PUF INH AD PRN ASTHMA ( Reported) Chlorpromazine HCl 25 MG TABLET 75 MG PO Q4 HRS NEEDED PRN ANXIETY Clonazepam (Klonopin) 1 MG TABLET 1 MG PO BID anxiety Gabapentin 300 MG CAPSULE 600 MG PO TID anxiety Hydrocortisone (Proctosol-Hc) 2.5 % CREAM.APPL RASH (Reported) Hydrocortisone 0.5 % CREAM..G. 1 ARIAN EXT BID eczema Hydroxyzine Hydrochloride (Atarax) 50 MG TAB 1 TAB PO TID ITCHING Ibuprofen 600 MG TABLET 600 MG PO Q4 HRS NEEDED PRN musculoskeletal pain Methadone Hydrochloride (Methadone HCl) 10 MG TABLET 30 MG PO 0800 opioid use Nicotine (Nicotine Patch) 14 MG/24 HOUR PATCH.TD24 14 MG TOP DAILY PRN smoking cessation Polyethylene Glycol 3350 (Miralax) 17 GRAM/DOSE POWDER 17 GM PO DAILY constipation Risperidone (Risperdal) 1 MG TABLET 1 MG PO BID paranoia Sennosides/Docusate Sodium (Senna Plus Tablet) 8.6 MG-50 MG TABLET 1 TAB PO BID PRN CONSTIPATION Triage Note: BIBA ON PEER FOR +SI STATEMENTS TO BROTHER. PT WAS HERE IN ED EARLIER TODAY, ACCOMPANIED BY BROTHER, WANTING REFIL ON ANXIETY MEDS. BROTHER AT THAT TIME VERBALIZED CONCERN PT WAS HAVING A 'MANIC EPISODE'-PT WALKED OUT OF ED WITHOUT BEING SEEN. PT RETURNS ON PEER-PT ADAMANTLY DENIES BEING SI-STATES 'MY BROTHER IS TRYING TO HAVE ME COMMITTED'-PT ANGRY SHE IS HERE AND INSISTING SHE NEEDS TO LEAVE SOON TO CARE FOR HER DOG AT HOME. Triage Nurses Notes Reviewed? yes Onset: Abrupt Duration: hour(s): Timing: constant HPI: 47 y/o female with a h/o asthma, OA, anxiety, ADD presenting on a PEER for SI. Pt was seen in the ER this morning for refill on her meds, klonopin and adderall , states she has been off of them for 2 weeks, but states she has been feeling well since she stopped taking them. She left the ER without being seen this morning. After she left her brother alleged that she made comments about SI, but pt is denying at this time. States she thinks her brother is trying to get her admitted permanently to a psychiatric facility. Denies HI. Denies ETOH or drug use. Denies pain or trauma. (Miguelina Cortez) Allergies Coded Allergies: tramadol (Severe, SHAKES 08/03/17) fluoxetine (From PROZAC) (SI 10/08/17) (Danica HIGGINS,Deshaun Mcknight) Past History Travel History Traveled to [place] past 21 day No Medical History Any Pertinent Medical History? see below for history Neurological: NONE EENT: NONE Cardiovascular: HEART MURMUR Respiratory: asthma Gastrointestinal: NONE Hepatic: NONE Renal: NONE Musculoskeletal: ARTHRITIS Psychiatric: anxiety, ADD PANIC ATTACK Endocrine: NONE Blood Disorders: NONE Cancer(s): NONE CERTIFICATION OFFICER/Reproductive: NONE Isolation History: Standard Tetanus Vaccine: 04/23/15 Surgical History Surgical History: appendectomy, Psychosocial History Who do you live with Patient/Self What is your primary language Armenian Family History Hx Contributory? No (Miguelina Cortez) Review of Systems Review of Systems Constitutional: Reports: no symptoms. EENTM: Reports: no symptoms. Respiratory: Reports: no symptoms. Cardiovascular: Reports: no symptoms. GI: Reports: no symptoms. Genitourinary: Reports: no symptoms. Musculoskeletal: Reports: no symptoms. Skin: Reports: no symptoms. Neurological/Psychological: Reports: no symptoms. Hematologic/Endocrine: Reports: no symptoms. Immunologic/Allergic: Reports: no symptoms. All Other Systems: Reviewed and Negative (Celia Cortezy) Physical Exam Physical Exam General Appearance: well developed/nourished, no apparent distress, alert, awake , comfortable Head: atraumatic, normal appearance Eyes: Bilateral: normal appearance. Neck: normal inspection Respiratory: normal breath sounds, lungs clear Cardiovascular: regular rate/rhythm Gastrointestinal: soft, non-tender Back: normal inspection Extremities: normal inspection Neurologic/Psych: awake, alert, oriented x 3, normal gait, normal mood/affect Skin: intact, normal color, warm/dry Core Measures ACS in differential dx? No CVA/TIA Diagnosis: No Sepsis Present: No Sepsis Focused Exam Completed? No (Daniela LOPEZ,Miguelina) Progress Differential Diagnoses I considered the following diagnoses in my evaluation of the patient: [SI, low concern for intoxication vs trauma] Plan of Care: Orders Procedure Date/time Status Regular Diet 11/09 D Active Add-on Test (ER Only) 11/09 2205 Active Add-on Test (ER Only) 11/09 2104 Active CULTURE,URINE 11/09 160 Active URINALYSIS 11/09 1601 Complete Continuous Observation Monitor 11/09 1543 Active URINE DRUGS OF ABUSE 11/09 1543 Complete MAGNESIUM 11/09 1543 Complete ETHANOL 11/09 1543 Complete COMPREHENSIVE METABOLIC PANEL 11/09 1543 Complete CBC WITHOUT DIFFERENTIAL 11/09 1543 Complete ED CRISIS PSYCH CONSULT 11/09 1543 Active Current Medications Sig/Ivan Start time Last Medication Dose Stop Time Status Admin Methadone HCl 30 MG 0800 11/10 0800 UNVr 11/10 (Dolophine) 0820 Cephalexin 500 MG BID 11/09 2214 UNVr 11/10 (Keflex 500MG Cap) 0820 Clonazepam 1 MG BID 11/09 2099 UNVr 11/10 (Klonopin 1MG Tab) 11/16 2058 0820 Gabapentin 600 MG TID 11/09 2099 UNVr 11/10 (Neurontin) 0820 Risperidone 1 MG BID 11/09 2099 UNVr 11/10 (Risperidone) 0820 Albuterol Sulfate 2 PUF .[AD] PRN 11/09 2044 UNVr (Ventolin) Nicotine 14 MG DAILY PRN 11/09 2044 UNVr (Nicotine Cq) Senna/Docusate Sodium 1 TAB BID PRN 11/09 2044 UNVr (Senokot S) Laboratory Tests 11/09/171956: Urine Color Cancelled, Urine Clarity Cancelled, Urine pH Cancelled, Ur Specific [place] Cancelled, Urine Protein Cancelled, Urine Ketones Cancelled, Urine Nitrite Cancelled, Urine Bilirubin Cancelled, Urine Urobilinogen Cancelled, Ur Leukocyte Esterase Cancelled, Ur Microscopic Cancelled, Urine Hemoglobin Cancelled, Urine Glucose Cancelled 11/09/17 1624: Anion Gap 7, Estimated GFR > 60, BUN/Creatinine Ratio 23.3, Glucose 131 H, Calcium 9.2, Magnesium 1.7, Total Bilirubin 0.2, AST 16, ALT 20, Alkaline Phosphatase 47, Total Protein 7.0, Albumin 4.0, Globulin 3.0, Albumin/Globulin Ratio 1.3, CBC w Diff NO MAN DIFF REQ, RBC 4.98, MCV 78.3 L, MCH 25.5 L, MCHC 32.6 L, RDW 16.2 H, MPV 9.8, Gran % 70.9, Lymphocytes % 22.3, Monocytes % 6.0, Eosinophils % 0.6, Basophils % 0.2, Absolute Granulocytes 11.7 H, Absolute Lymphocytes 3.7 H, Absolute Monocytes 1.0 H, Absolute Eosinophils 0.1, Absolute Basophils 0, Serum Alcohol < 10.0 11/09/17 1601: Urine Opiates Screen < 100, Methadone Screen > 735 H, Barbiturate Screen < 60, Ur Phencyclidine Scrn 8.60, Amphetamines Screen 192, U Benzodiazepines Scrn < 85 , Urine Cocaine Screen < 50, Urine Cannabis Screen < 5.00, Urinalysis MOD H, Urine Color YEL, Urine Clarity CLDY H, Urine pH 6.0, Ur Specific [place] >= 1.030, Urine Protein TRACE H, Urine Ketones TRACE H, Urine Nitrite NEG, Urine Bilirubin NEG, Urine Urobilinogen 0.2, Ur Leukocyte Esterase NEG, Ur Microscopic SEDIMENT EXAMINED, Ur Epithelial Cells FEW, Urine Bacteria MANY H, Urine Mucus FEW, Urine Hemoglobin NEG, Urine Glucose NEG Microbiology 11/09 1601 URINE ROUT: Urine Culture - RES Labs showed leukocytosis to 16 and hypokalemia to 3.1 Was given oral potassium repletion Chest x-ray and UA were obtained to evaluate leukocytosis Chest x-ray was unremarkable UA was questionable for infection, had many bacteria, but no wbc's. Given that the sample was a clean catch and showed many bacteria with no other infectious source will treat with Keflex for UTI at this time, urine culture was sent. Patient signed out to Dr. Calderon with crisis eval pending. Initial ED EKG: none (Miguelina Cortez) Hand-Off Endorsed To: Deshaun Mishra MD Endorsed Time: 0700 Pending: consult (Hari Calderon MD) Comments: 11/10/2017 7:17:40 AM patient signed out to me by Dr. calderon at shift change management manager. 11/10/2017 10:20:20 AM patient has been evaluated by the crisis condition and felt to be stable for outpatient management. (Danica HIGGINS,Deshaun Mcknight) Departure Departure Condition: Stable Referrals: Amy Costa APRN (PCP/Family) Departure Forms: Customer Survey General Discharge Information (Miguelina Cortez) Departure Disposition: HOME OR SELF CARE Clinical Impression Primary Impression: Suicidal ideation Secondary Impressions: UTI (urinary tract infection) Qualifiers: Urinary tract infection type: site unspecified Hematuria presence: without hematuria Qualified Code: N39.0 - Urinary tract infection, site not specified Additional Instructions: Follow-up with your IOP appointment tomorrow. Keflex as prescribed for your urinary tract infection. If you have persistent urinary tract signs or symptoms please follow-up with your primary care physician in 3 days. Return if any concerns or sudden worsening. Prescriptions: Current Visit Scripts Cephalexin (Keflex) 1 CAP PO BID #6 CAP (Danica HIGGINS,Deshaun Mcknight) Critical Care Note Critical Care Note Critical Care Time: non-applicable (Miguelina Cortez)
[2017-11-09 16:31] LABS: ABSOLUTE BASOPHIL COUNT 0 /CUMM (0.0-0.2); ABSOLUTE EOSINOPHIL COUNT 0.1 /CUMM (0.0-0.7); ABSOLUTE GRANULOCYTE CT 11.7 /CUMM (1.4-6.5); ABSOLUTE LYMPH COUNT 3.7 /CUMM (1.2-3.4); BASOPHIL % 0.2 % (0.0-2.0); EOSINOPHIL % 0.6 % (0-5); GRANULOCYTE % 70.9 % (42.2-75.2); MEAN CORPUSCULAR HGB 25.5 PG (27.0-31.0); MEAN CORPUSCULAR HGB CONC 32.6 G/DL (33.0-37.0); MEAN CORPUSCULAR VOLUME 78.3 FL (81.0-99.0); MEAN PLATELET VOLUME 9.8 FL (7.4-10.4); PLATELET COUNT 270 /CUMM (130-400); RBC DISTRIBUTION WIDTH 16.2 % (11.5-14.5); RED BLOOD CELL CT 4.98 /CUMM (4.20-5.40)
[2017-11-09 16:56] LABS: WHITE BLOOD CELL COUNT 16.5 /CUMM (4.8-10.8)
--- NOTE | 2017-11-09 18:58 | ED PSY CRISIS COLLATERAL NOTE ---
Collateral Note Collateral Note Family/Inform/Cici Contacts: This film writer spoke with patient's brother, Kamari Quesada . Patient's brother reports that he brought patient to [place] ED this morning because patient reported that she ran out of medications. Patient's brother also reports that patient was paranoid that "people were out to get her", experiencing visual hallucinations of people approaching her on the street, making passive suicidal statements, and having delusions that she "has a lot of money in the bank". Patient ran from the ED while patient's brother was outside parking his car. Patient's brother called [facility], and they recommended that he calls the police. Police and patient's brother arrived at patient's apartment. Patient denied paranoia, hallucinations, SI, and delusions to police. Patient's brother showed police a video of patient saying "I don't want to live anymore" and saying that she believes that people are out to get her, and police called an ambulance. He informed this film writer that patient's mental health has been declining and her symptoms have worsened over the past 6 months. Patient's brother reports long history of polysubstance abuse, including opioids, xanax, and adderall.
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
--- NOTE | 2017-11-09 20:57 | RADIOLOGY REPORT ---
EXAMINATION: XR CHEST CLINICAL INFORMATION: White blood cell count 16 COMPARISON: 09/03/2016 TECHNIQUE: 2 views of the chest were obtained. FINDINGS: No significant abnormality is noted involving the heart, lungs, mediastinum, bony thorax or soft tissues. IMPRESSION: No acute pulmonary disease.
[2017-11-10] MEDS ORDERED: KEFLEX750 M1 PO (10:23)
[2017-11-10 10:32] VITALS: BP 120/76
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
== END 2017-11-10 10:56 ==
LOC: ERH 15:33
PROVIDERS: Physician Assistant
DX: N39.0 Urinary tract infection, site not specified (principal); R45.851 Suicidal ideations
CPT/HCPCS: 71046; 80307; 81001; 87086; G0463; G0480

== ENCOUNTER 2017-12-03 17:09 | Inpatient (IN) | payer OTHER ==
[~2017-12-03] VITALS: Ht 61 cm; Wt 80.7 kg
[~2017-12-03 17:09] MED LIST changes: +BENADRYL25 MG PO; +CEPHALEXIN500 M3 PO; +KEFLEX750 M1 PO; +PREDNISONE20 M1 PO; +SARNA222 ML TOP
--- NOTE | 2017-12-03 19:07 | ED GENERAL ADULT ---
History of Present Illness General Chief Complaint: General Adult Stated Complaint: BACK PAIN/EXTREMITY SWELLING Source: patient Exam Limitations: no limitations Vital Signs & Intake/Output Vital Signs & Intake/Output Vital Signs Date Time Temp Pulse Resp B/P B/P Pulse O2 O2 Flow FiO2 Mean Ox Delivery Rate 12/03 2230 97.6 92 18 14/78 97 Room Air 12/03 2204 86 18 130/81 99 Room Air 12/03 2000 98.0 79 16 129/79 99 Room Air 12/03 1736 98.5 87 18 133/84 97 Room Air Allergies Coded Allergies: tramadol (Severe, SHAKES 11/14/17) fluoxetine (From PROZAC) (SI 11/14/17) prednisone (ITCH 12/03/17) Reconcile Medications Clonazepam (Klonopin) 1 MG TABLET 1 MG PO BID anxiety Gabapentin 300 MG CAPSULE 600 MG PO TID anxiety Methadone Hydrochloride (Methadone HCl) 10 MG TABLET 30 MG PO 0800 opioid use Risperidone (Risperdal) 1 MG TABLET 1 MG PO BID paranoia Triage Note: PT STATSE SHE HAS SWELLING IN HER FEET FOR THE PAST 4 DAYS AND SHE IS HAVING A LOT OF BACK PAIN. PT STATES SHE HAS BEEN UNABLE TO WALK A LOT. Triage Nurses Notes Reviewed? yes HPI: I'm on Keflex for cellulitis but mild leg swelling is been getting worse and more redness and is itchy and it hurts. I lived with my dogs. Today's my last day on the pill. Past History Travel History Traveled to [place] past 21 day No Medical History Any Pertinent Medical History? 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 No Review of Systems Review of Systems Constitutional: Denies: see HPI. Respiratory: Denies: no symptoms. GI: Denies: no symptoms. Genitourinary: Denies: no symptoms. Neurological/Psychological: Denies: no symptoms. All Other Systems: Reviewed and Negative Physical Exam Physical Exam General Appearance: well developed/nourished (poorly nourish with generalize) Head: atraumatic, normal appearance Eyes: Bilateral: normal appearance. Ears, Nose, Throat: hearing grossly normal Neck: normal inspection, supple, full range of motion Respiratory: no respiratory distress, lungs clear Gastrointestinal: normal bowel sounds, soft Back: normal inspection, normal range of motion Extremities: inflammation, bilateral extremities swollen edematous redness noted with increased warmth with flaking skin Neurologic/Psych: awake, alert, oriented x 3 (very anxious and cries easily) Skin: warm/dry (dry flaky skin with swelling), rash Core Measures ACS in differential dx? Yes CVA/TIA Diagnosis: Yes Sepsis Present: Yes Sepsis Focused Exam Completed? Yes Progress Differential Diagnoses I considered the following diagnoses in my evaluation of the patient: [Due to her poor health condition with generalized cellulitis and edema she'll be admitted to the hospital] Plan of Care: Orders Procedure Date/time Status Regular Diet 12/04 B Active CBC WITHOUT DIFFERENTIAL 12/04 599 Active BASIC ELECTROLYTES PLUS BUN&CR 12/04 599 Active Pathway - chart 12/03 2216 Active House Staff 12/03 2216 Active Weight 12/03 2216 Active Vital Signs 12/03 2216 Active Teach/Educate 12/03 2216 Active Pain Treatment and Response 12/03 2216 Active Nutritional Intake, Monitor 12/03 2216 Active Isolation 12/03 2216 Active Intake & Output 12/03 2216 Active Patient Care Conference 12/03 2216 Active Activity/Ambulation 12/03 2216 Active Code Status 12/03 221 Active Patient Data 12/03 2137 Active Intake & Output 12/03 2128 Active Admit to inpatient 12/03 2118 Active Misc Message 12/04 2111 Active ED Holding Orders 12/04 2111 Active Code Status 12/04 2111 Complete Saline Lock 12/03 190 Active URINALYSIS 12/03 190 Active TROPONIN LEVEL 12/03 190 Complete PHOSPHORUS 12/03 190 Complete MAGNESIUM 12/03 190 Complete COMPREHENSIVE METABOLIC PANEL 12/03 190 Complete CBC WITHOUT DIFFERENTIAL 12/03 190 Complete B-TYPE NATRIURETIC PEP (BNP) 12/03 190 Complete EKG 12/03 190 Active VTE Mechanical Prophylaxis 12/03 UNK Active Current Medications Sig/Ivan Start time Last Medication Dose Stop Time Status Admin Diphenhydramine HCl 25 MG DAILY 12/04 899 UNVr (Benadryl) Enoxaparin Sodium 40 MG DAILY 12/04 899 UNVr (Lovenox) Diphenhydramine HCl 25 MG ONCE ONE 12/03 2244 UNVr (Benadryl) 12/03 2245 Hydrocortisone 1 ARIAN TID 12/04 2235 UNVr Acetaminophen 650 MG Q6P PRN 12/03 2214 UNVr (Tylenol) Ibuprofen 600 MG Q6P PRN 12/03 2214 UNVr (Motrin) Laboratory Tests 12/03/17 2100: Anion Gap 6, Estimated GFR > 60, BUN/Creatinine Ratio 13.3, Glucose 104 H, Calcium 8.8, Phosphorus 4.6 H, Magnesium 2.1, Total Bilirubin 0.2, AST 44 H, ALT 32, Alkaline Phosphatase 87, Troponin I < 0.01, Gdd-Q-Nfrraobvnuf Pept 48.1, Total Protein 5.9 L, Albumin 3.2 L, Globulin 2.7, Albumin/Globulin Ratio 1.2, CBC w Diff NO MAN DIFF REQ, RBC 4.47, MCV 77.4 L, MCH 25.4 L, MCHC 32.8 L, RDW 15.7 H, MPV 9.5, Gran % 63.8, Lymphocytes % 19.2 L, Monocytes % 8.5, Eosinophils % 8.1 H, Basophils % 0.4, Absolute Granulocytes 5.4, Absolute Lymphocytes 1.6, Absolute Monocytes 0.7 H, Absolute Eosinophils 0.7, Absolute Basophils 0 She'll be admitted to the hospital for treatment of his cellulitis and leg edema Initial ED EKG: none Departure Departure Time of Disposition: 2107 Disposition: STILL A PATIENT Condition: Stable Clinical Impression Primary Impression: Cellulitis Secondary Impressions: Generalized edema Referrals: Amy Costa APRN (PCP/Family) Departure Forms: Customer Survey General Discharge Information Admission Note Spoke With: Ruth Scott MD Documentation of Exam: Documentation of any treatments & extenuating circumstances including Concerns Regarding Discharge (functional status, medication knowledge or non-compliance, living conditions, etc.) that warrant an admission rather than observation: [She has redness cellulitis of both legs from foot to inguinal area bilaterally as well as both arms with skin flaking in poor condition. She will require several days of intravenous antibiotic to get the infection under control otherwise should become septic.] Critical Care Note Critical Care Note Critical Care Time: non-applicable ED Attending Observation Initial Observation Note: I have seen and personally examined LUCIANO VERDE on 12/03/17 at 2244. I agree with the current emergency department documentation. The disposition (admission or discharge) is uncertain at this time, she needs a period of observation for the following reason(s): The ED Nurse caring for this patient has been personally informed as to what the patient is being observed for.
--- NOTE | 2017-12-03 20:23 | RADIOLOGY REPORT ---
EXAMINATION: XR CHEST CLINICAL INFORMATION: Edema. Swelling. COMPARISON: 11/14/2017 TECHNIQUE: 2 views of the chest were obtained. FINDINGS: No significant abnormality is noted involving the heart, lungs, mediastinum, bony thorax or soft tissues. IMPRESSION: Unremarkable examination.
[2017-12-03 21:19] LABS: ABSOLUTE BASOPHIL COUNT 0 /CUMM (0.0-0.2); ABSOLUTE EOSINOPHIL COUNT 0.7 /CUMM (0.0-0.7); ABSOLUTE GRANULOCYTE CT 5.4 /CUMM (1.4-6.5); ABSOLUTE LYMPH COUNT 1.6 /CUMM (1.2-3.4); ABSOLUTE MONOCYTE COUNT 0.7 /CUMM (0.10-0.60); BASOPHIL % 0.4 % (0.0-2.0); EOSINOPHIL % 8.1 % (0-5); GRANULOCYTE % 63.8 % (42.2-75.2); HEMATOCRIT 34.6 % (37-47); MEAN CORPUSCULAR HGB 25.4 PG (27.0-31.0); MEAN CORPUSCULAR HGB CONC 32.8 G/DL (33.0-37.0); MEAN CORPUSCULAR VOLUME 77.4 FL (81.0-99.0); MEAN PLATELET VOLUME 9.5 FL (7.4-10.4); PLATELET COUNT 405 /CUMM (130-400); RBC DISTRIBUTION WIDTH 15.7 % (11.5-14.5); RED BLOOD CELL CT 4.47 /CUMM (4.20-5.40); WHITE BLOOD CELL COUNT 8.5 /CUMM (4.8-10.8)
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
[2017-12-03 22:31] VITALS: BP 14/78
[2017-12-04 06:29] VITALS: BP 110/64
[2017-12-04 08:03] LABS: ABSOLUTE BASOPHIL COUNT 0 /CUMM (0.0-0.2); ABSOLUTE EOSINOPHIL COUNT 0.4 /CUMM (0.0-0.7); ABSOLUTE GRANULOCYTE CT 5.2 /CUMM (1.4-6.5); ABSOLUTE LYMPH COUNT 1.1 /CUMM (1.2-3.4); ABSOLUTE MONOCYTE COUNT 0.5 /CUMM (0.10-0.60); BASOPHIL % 0.3 % (0.0-2.0); EOSINOPHIL % 6.1 % (0-5); GRANULOCYTE % 71.5 % (42.2-75.2); HEMATOCRIT 30.4 % (37-47); MEAN CORPUSCULAR HGB 25.3 PG (27.0-31.0); MEAN CORPUSCULAR HGB CONC 32.2 G/DL (33.0-37.0); MEAN CORPUSCULAR VOLUME 78.5 FL (81.0-99.0); MEAN PLATELET VOLUME 10.2 FL (7.4-10.4); PLATELET COUNT 367 /CUMM (130-400); RBC DISTRIBUTION WIDTH 15.5 % (11.5-14.5); RED BLOOD CELL CT 3.88 /CUMM (4.20-5.40); WHITE BLOOD CELL COUNT 7.3 /CUMM (4.8-10.8)
--- NOTE | 2017-12-04 08:40 | PN- Housestaff ---
See Addendum Subjective Follow-up For: Diffuse Generalized Eczematous Rash likely contact dermatitis Hypochromic Microcytic Anemia Chronic Opioid Use - on methadone Subjective: Patient jaleesa and examined at bedside this morning with nurse applying triamcinolone to her diffuse rash. Rash seems to be diffuse, exfoliated and red with distribution from the feet to the upper thighs. Patient has the same rash and erythema in the hands up to the arms with some located on the back. Patient claims it is itchy and a mild pain. She notes her leg swelling has interfered with her ability to ambulate. She states she had 3 episodes of loose stools over night with some chills. Otherwise, afebrile with no new complaints. Patient on methadone dose that needs to be confirmed by [facility] in [place] which I was unable to reach. Review of Systems Constitutional: Denies: see HPI. Objective Last 24 Hrs of Vital Signs/I&O Vital Signs Date Time Temp Pulse Resp B/P B/P Pulse O2 O2 Flow FiO2 Mean Ox Delivery Rate 12/04 628 98.4 99 20 110/64 97 12/03 2231 97.6 92 18 14/78 97 Room Air 12/03 2204 86 18 130/81 99 Room Air 12/03 2001 98.0 79 16 129/79 99 Room Air 12/03 1736 98.5 87 18 133/84 97 Room Air Intake & Output 12/04 1600 12/04 0800 12/04 0000 Intake Total Output Total Balance Patient 178 lb 178 lb Weight Weight Bed scale Measurement Method Physical Exam General Appearance: Alert, Oriented X3, Cooperative, Mild Distress Skin: Diffuse, erythematous, exfolated rash from foot to upper thigh, hands to arms Skin Temp/Moisture Exam: Warm/Excessively Dry HEENT: EOMI, Mucous Membr. moist/pink Cardiovascular: Normal S1, Normal S2 Lungs: Clear to Auscultation, Normal Air Movement Abdomen: Normal Bowel Sounds, Soft, No Tenderness Extremities: Lower extremity edema with associated erytmatous exfoliated rash diffusely spread through her extremities including the feet and hands Vascular: Normal Pulses, Pulses Symmetrical Current Medications: Current Medications Sig/Ivan Start time Last Medication Dose Route Stop Time Status Admin Acetaminophen 650 MG Q6P PRN 12/03 2215 AC PO Bismuth Subsalicylate 30 ML BID 12/04 0909 AC 12/04 PO 0948 Ceftriaxone Sodium 0 .STK-MED ONE 12/03 2109 DC .ROUTE Ceftriaxone Sodium 1,000 MG ONCE ONE 12/03 1929 DC 12/03 IV 12/03 Diphenhydramine HCl 25 MG DAILY 12/04 899 AC 12/04 PO 0745 Diphenhydramine HCl 25 MG ONCE ONE 12/03 2245 DC 12/04 PO 12/03 2246 0107 Enoxaparin Sodium 40 MG DAILY 12/04 899 AC 12/04 SC 0745 Hydrocortisone 1 ARIAN TID 12/03 2236 DC 12/04 EXT 0107 Ibuprofen 600 MG Q6P PRN 12/03 2215 AC PO Omeprazole 20 MG ONCE ONE 12/04 899 DC 12/04 PO 12/04 0901 0854 Triamcinolone 1 ARIAN BID 12/04 899 AC 12/04 Acetonide TOP 0854 Last 24 Hrs of Lab/Sin Results Last 24 Hrs of Labs/Mics: Laboratory Tests 12/04/17 1000: MARY Titer Cancelled, Anti-Nuclear Antibody Cancelled 12/04/17 0710: Urine Color YEL, Urine Clarity CLEAR, Urine pH 7.0, Ur Specific Lorraine 1.025, Urine Protein TRACE H, Urine Ketones TRACE H, Urine Nitrite NEG, Urine Bilirubin NEG, Urine Urobilinogen 0.2, Ur Leukocyte Esterase NEG, Ur Microscopic SEDIMENT EXAMINED, Urine RBC RARE, Urine WBC RARE, Ur Epithelial Cells MOD H, Urine Bacteria FEW H, Urine Mucus MANY H, Micro UA Comment BUDDING YEAST H, Urine Hemoglobin NEG, Urine Glucose NEG 12/04/17 0645: Anion Gap 2 L, Estimated GFR > 60, BUN/Creatinine Ratio 14.0, CBC w Diff NO MAN DIFF REQ, RBC 3.88 L, MCV 78.5 L, MCH 25.3 L, MCHC 32.2 L, RDW 15.5 H, MPV 10.2, Gran % 71.5, Lymphocytes % 14.9 L, Monocytes % 7.2, Eosinophils % 6.1 H, Basophils % 0.3, Absolute Granulocytes 5.2, Absolute Lymphocytes 1.1 L, Absolute Monocytes 0.5, Absolute Eosinophils 0.4, Absolute Basophils 0, ESR Westergren 16, MARY Titer Pending, Anti-Nuclear Antibody Pending 12/03/17 2100: Anion Gap 6, Estimated GFR > 60, BUN/Creatinine Ratio 13.3, Glucose 104 H, Calcium 8.8, Phosphorus 4.6 H, Magnesium 2.1, Iron 23 L, TIBC 256 L, Ferritin 13.9, Total Bilirubin 0.2, AST 44 H, ALT 32, Alkaline Phosphatase 87, Troponin I < 0.01, Ihl-Z-Bapqjdxiuuk Pept 48.1, Total Protein 5.9 L, Albumin 3.2 L, Globulin 2.7, Albumin/Globulin Ratio 1.2, CBC w Diff NO MAN DIFF REQ, RBC 4.47, MCV 77.4 L, MCH 25.4 L, MCHC 32.8 L, RDW 15.7 H, MPV 9.5, Gran % 63.8, Lymphocytes % 19.2 L, Monocytes % 8.5, Eosinophils % 8.1 H, Basophils % 0.4, Absolute Granulocytes 5.4, Absolute Lymphocytes 1.6, Absolute Monocytes 0.7 H, Absolute Eosinophils 0.7, Absolute Basophils 0 12/03/171903: Urine Color Cancelled, Urine Clarity Cancelled, Urine pH Cancelled, Ur Specific Lorraine Cancelled, Urine Protein Cancelled, Urine Ketones Cancelled, Urine Nitrite Cancelled, Urine Bilirubin Cancelled, Urine Urobilinogen Cancelled, Ur Leukocyte Esterase Cancelled, Ur Microscopic Cancelled, Urine Hemoglobin Cancelled, Urine Glucose Cancelled Assessment/Plan Assessment: 47 yo F with PMH of asthma, anxiety, opiod dependence on methadone presented to the ED for evaluation of diffuse rash and swelling involving her extremities. Looking at ER records, she has been seen several times for similar complaints since August. Most recently, she was seen on 11/20 and 11/24. She states on the initial visit in November, she had a dry/itchy skin of lower extremities that involved her lower extremities. She was prescribed hydrocortisone/benadryl and keflex which she states taking faithfully. Since her last visit on 11/24, she states that the rash has progressed to her upper body and arm along with swelling and peeling of skin of her lower extremities. She mentions that she changed her laundry detergent 2 weeks ago and that's when everything started. She has had a dog for number of years. 12/04: Patient continues to have itching and mild pain of her rash. She is afebrile with no leukocytosis. Triamcinolone cream being applied. Patient has had diarrhea and requested pepto bismol. Patient on methadone 30mg at home and has been conitnued but will need to be followed up from [facility] in [place] [phone] who I was not able to contact. Please confirm dose. PROBLEM LIST: 1. Diffuse Rash - likely contact dermatitis 2. Microcytic Anemia 2/2 Iron deficiency 3. Chronic Opioid Use - Methadone PLAN: * Continue application of Triamcinolone application BID topically + Benadryl 25mg daily * Patient started on her methadone 30mg daily which needs to be reconfirmed by [facility] in [place], [place] * Continue to monitor for fevers/leukocytosis * MARY, ESR to follow to rule out vasculitis * Patient will need outpatient dermatology referrel * Iron panel shows a ferritin of 13.9, TIBC of 256 and Iron of 23 that is low with an MCV of 78.5.; possible routine colonoscopy outpatient * Monitor elevated eosinophils of 8.1 and 6.1 on admission DVT PPx: ALPS + Ambulation Diet: Regular Diet Code: Full Code Problem List: 1. Eczema 2. Rash Pain Ratin Pain Location: disribution of the rash Pain Goal: Pain 4 or less Pain Plan: as per pain pathway Tomorrow's Labs & Rationales: cbc
[2017-12-04 14:58] VITALS: BP 121/78
[2017-12-04 21:34] VITALS: BP 109/55
[2017-12-05 07:28] VITALS: BP 103/55
[2017-12-05 07:45] LABS: ABSOLUTE BASOPHIL COUNT 0 /CUMM (0.0-0.2); ABSOLUTE EOSINOPHIL COUNT 0.3 /CUMM (0.0-0.7); ABSOLUTE GRANULOCYTE CT 6.9 /CUMM (1.4-6.5); ABSOLUTE LYMPH COUNT 1.9 /CUMM (1.2-3.4); ABSOLUTE MONOCYTE COUNT 0.6 /CUMM (0.10-0.60); BASOPHIL % 0.5 % (0.0-2.0); EOSINOPHIL % 3.2 % (0-5); GRANULOCYTE % 70.5 % (42.2-75.2); HEMATOCRIT 29.9 % (37-47); MEAN CORPUSCULAR HGB 25.4 PG (27.0-31.0); MEAN CORPUSCULAR HGB CONC 32.3 G/DL (33.0-37.0); MEAN CORPUSCULAR VOLUME 78.7 FL (81.0-99.0); MEAN PLATELET VOLUME 10.4 FL (7.4-10.4); PLATELET COUNT 363 /CUMM (130-400); RBC DISTRIBUTION WIDTH 16.1 % (11.5-14.5); RED BLOOD CELL CT 3.79 /CUMM (4.20-5.40); WHITE BLOOD CELL COUNT 9.8 /CUMM (4.8-10.8)
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
[2017-12-05] MEDS ORDERED: TRIAMCINOLONE A15 G1 TOP ×2 (13:28→17:15)
--- NOTE | 2017-12-05 13:28 | Patient Discharge Instructions ---
Discharge Instructions General Discharge Information You were seen/treated for: Dermatitis Special Instructions: Use the triamcinolone cream as directed Follow up with the spring repairer helper hand. You have been provided a referal Follow up with your pcp within 1 week of discharge Please keep a diary of any new foods, detergents, shampoo/body wash, cosmetics you may be using Acute Coronary Syndrome Inclusion Criteria At DC or during hospital stay patient has or had the following: ACS DIAGNOSIS No Discharge Core Measures Meds if any: Prescribed or Continued at Discharge Meds if any: NOT Prescribed or Continued at Discharge Congestive Heart Failure Inclusion Criteria At DC or during hospital stay patient has or had the following: CHF DIAGNOSIS No Discharge Core Measures Meds if any: Prescribed or Continued at Discharge Meds if any: NOT Prescribed or Continued at Discharge Cerebrovascular accident Inclusion Criteria At DC or during hospital stay patient has or had the following: CVA/TIA Diagnosis Yes Discharge Core Measures Meds if any: Prescribed or Continued at Discharge Meds if any: NOT Prescribed or Continued at Discharge Venous thromboembolism Inclusion Criteria VTE Diagnosis No VTE Type NONE VTE Confirmed by (Test) NONE Discharge Core Measures - Per Current guidelines, there needs to be overlap - treatment for the first 5 days of Warfarin therapy. - If discharged on Warfarin prior to 5 days of - overlap therapy, the patient will need to be - assessed for post discharge needs including - *Post discharge parental anticoagulation - *Warfarin and/or parental anticoagulation education - *Follow up date to check INR post discharge At least 5 days overlap therapy as Inpatient No Meds if any: Prescribed or Continued at Discharge Note: Overlap Therapy is Warfarin and Anticoagulant Meds if any: NOT Prescribed or Continued at Discharge
[2017-12-05] MEDS ORDERED: PEPTO-BISMOL262 M2 PO ×2 (13:29→17:15)
[2017-12-05 14:06] VITALS: BP 112/71
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
== END 2017-12-05 21:06 | DRG 385 ==
LOC: ERH 17:09 → ERHI 21:19 → 2NB 21:19 → ENRESERV 21:54 → ENTRNSPT 21:59 → EDTRNSPTSTS 22:00 → 2NB 22:13 → CMPTRNSPT 22:19 → 2NB 12-04 10:32 → ENPENDDIS 12-05 14:46 → DELTRNSPT 12-05 20:50 → ENTRNSPT 12-05 20:51 → 2NB 12-05 21:06 → CMPTRNSPT 12-05 21:07
PROVIDERS: Emergency Medicine; Internal Medicine; Physical Medicine & Rehabilitation Pain Medicine
DX: L30.8 Other specified dermatitis (principal); F32.9 Major depressive disorder, single episode, unspecified; J45.909 Unspecified asthma, uncomplicated; M54.9 Dorsalgia, unspecified; Z88.8 Allergy status to other drugs, medicaments and biological substances; F98.8 Other specified behavioral and emotional disorders with onset usually occurring in childhood and adolescence; F17.210 Nicotine dependence, cigarettes, uncomplicated; D50.9 Iron deficiency anemia, unspecified; F11.20 Opioid dependence, uncomplicated
CPT/HCPCS: 2NBP; 36592; 71046; 81001; 82436; 93005; 93010; J0696; J1650